=== PATIENT | female | born 1950 | race Caucasian/White ===

== ENCOUNTER 2019-05-28 13:12 | Emergency (ER) | payer MEDICARE, OTHER, SELFPAY ==
[2019-05-28 13:29] VITALS: BP 161/89; PULSE 96; RESP 20; TEMP 36; O2SAT 96
--- NOTE | 2019-05-28 13:37 | ED.GENADULT ---
HPI - General Adult General Chief complaint: Dental/Oral Stated complaint: left side tooth ache Time Seen by Provider: 05/28/19 13:37 Source: patient and RN notes reviewed History of Present Illness HPI narrative: Patient is a 68-year-old female that presents the urgent care with complaints of a left upper toothache. Patient states that she has had recent dental work done on the lower right but nothing on the left. Patient states that it started yesterday and now she is having increased swelling to the left face. Has been using Aleve, aspirin, Tylenol, Vicodin. No other acute complaints. Denies of fever, nausea, vomiting. No acute distress noted. Patient aware the plan of care. Related Data Home Medications Medication Instructions Recorded Confirmed fluoxetine mg 05/28/19 levothyroxine 05/28/19 nifedipine PO 05/28/19 Allergies Allergy/AdvReac Type Severity Reaction Status Date / Time No Known Allergies Allergy Unverified 05/28/19 13:27 Review of Systems Review of Systems: Narrative: CONSTITUTIONAL: Denies fever, chills, or sweats. EYES: Denies visual changes, redness, or discharge. ENT: Reports of upper left dental pain and facial swelling CARDIOVASCULAR: Denies chest pain, palpitations, or edema. RESPIRATORY: Denies cough or dyspnea. GASTROINTESTINAL: Denies abdominal pain, nausea, vomiting, or diarrhea. GENITOURINARY: Denies dysuria or hematuria. SKIN: Denies rash or itching. MUSCULOSKELETAL: Denies back pain, joint pain, or myalgia. NEUROLOGIC: Denies headache, numbness, or weakness. All other systems reviewed are negative, except as documented in HPI. PMFSH Comments At the time of my signature, I reviewed and agree with the nursing past medical, surgical, social, and family history. There is no relevant family history pertinent to the patient complaint. Exam Narrative: Exam Narrative: GENERAL: This is a well-nourished, well-developed patient, in no apparent distress. HEAD: normocephalic, atraumatic. EYES: PERRL. Sclera clear/white. Vision is grossly intact. EARS: External ears normal NOSE: External nose normal with no obvious nasal discharge, nares without redness, no rhinorrhea. THROAT: Mucous membranes moist, posterior pharynx clear. DENTAL: No obvious erythema or abscess noted to the upper left quadrant. Reports of pain to tooth numbers 15 and 16. Mild to moderate upper left facial swelling NECK: Neck supple, non-tender without lymphadenopathy, masses or thyromegaly. CARDIOVASCULAR: Regular rate and rhythm without murmurs, gallops, or rubs. RESPIRATORY: Clear to auscultation. Breath sounds equal bilaterally. No wheezes, rales, or rhonchi. SKIN: warm, intact with no suspicious lesions or rash, good texture and turgor. NEURO: awake, alert, and oriented to person, place and time. There were no obvious focal neurologic abnormalities. EXTREMITIES: No clubbing, cyanosis, or edema. Course Vital Signs Vital signs: Vital Signs Temperature 96.8 F L 05/28/19 13:29 Pulse Rate 96 05/28/19 13:29 Respiratory Rate 05/28/19 13:29 Blood Pressure 161/89 H 05/28/19 13:29 Pulse Oximetry 96 05/28/19 13:29 Temperature 96.8 F L 05/28/19 13:29 Pulse Rate 96 05/28/19 13:29 Respiratory Rate 05/28/19 13:29 Blood Pressure 161/89 H 05/28/19 13:29 Pulse Oximetry 96 05/28/19 13:29 Reviewed?patient is informed that they may have pre-hypertension or hypertension based on a blood pressure reading in the department. I recommend the patient call the primary care provider listed on their discharge instructions or a physician of their choice this week to arrange follow-up for further evaluation of possible pre-hypertension or hypertension. Medical Decision Making MDM Narrative Medical decision making narrative: Advised patient complete antibiotic regimen as prescribed. Make sure to eat and drink with medication. May use warm compress or ice to the face for comfort and swelling. Use Tylenol/ib
== END 2019-05-28 13:57 | disposition home or self-care (01) ==
PROVIDERS: Emergency Provider Nurse Practitioner Family; PCP Internal Medicine
DX: K08.89 Other specified disorders of teeth and supporting structures (principal); I10 Essential (primary) hypertension; E03.9 Hypothyroidism, unspecified
CPT/HCPCS: 99213; G0463

== ENCOUNTER 2020-11-15 09:45 | Emergency (ER) | payer OTHER, SELFPAY ==
--- NOTE | ~2020-11-15 | US_ITS ---
EXAMINATION:US venous doppler LE LT INDICATION:Leg swelling TECHNIQUE: Multiple grayscale, color flow and Doppler images of the left lower extremity deep venous systems were obtained and reviewed. COMPARISON:No prior studies for comparison. FINDINGS: The common femoral, superficial femoral and popliteal veins demonstrate normal respiratory variation, augmentation and compressibility. Color flow is also seen within the posterior tibial, pe roneal, greater saphenous and profunda veins. IMPRESSION: 1: No lower extremity deep venous thrombosis. Reviewed, dictated and finalized at location A.
--- NOTE | ~2020-11-15 | XR_ITS ---
EXAMINATION: XR knee LT 3V DATE: 11/15/2020 10:57 INDICATION: Left knee pain and swelling TECHNIQUE: Anteroposterior, oblique and crosstable lateral views of the left knee were obtained COMPARISON: None. FINDINGS: Cemented left total knee arthroplasty with patellar resurfacing which appears well seated in near isra tomic alignment. No periprosthetic lucency to suggest loosening or infection. Small left knee joint e ffusion. IMPRESSION: 1. Left total knee arthroplasty in near-anatomic alignment. No acute osseous abnormality. 2. Small left knee joint effusion. Reviewed, dictated and finalized at location A. IMPRESSION: 1. Left total knee arthroplasty in near-anatomic alignment. No acute osseous ab normality. 2. Small left knee joint effusion.
[2020-11-15 09:56] VITALS: BP 191/92; PULSE 90; RESP 18; TEMP 36.7; O2SAT 97
[2020-11-15 10:39] LABS: Basophils Absolute Auto 0.1 K/mm3 (0.0-0.1); Eosinophils Absolute Auto 0.2 K/mm3 (0-0.3); Eosinophils Percent Auto 2.5 % (0-4.4); Hematocrit 44.7 % (37.0-47.0); Hemoglobin 14.5 g/dL (12.0-15.0); Immature Granulocyte Absolute 0.03 K/mm3 (0.00-0.031); Immature Granulocyte Percent A 0.4 % (0-0.5); Lymphocytes Absolute Auto 3.25 K/mm3 (0.9-3.2); Lymphocytes Percent Auto 48.3 % (18.3-44.2); Mean Corpuscular HGB Conc 32.4 g/dl (32-36); Mean Corpuscular Hemoglobin 29.1 pg (26-34); Mean Corpuscular Volume 89.8 fl (80-100); Mean Platelet Volume 9.1 fl (7.4-10.4); Monocytes Absolute Auto 0.4 K/mm3 (0.1-0.6); Monocytes Percent Auto 6.2 % (2.6-8.5); Neutrophils Absolute Auto 2.8 K/mm3 (1.3-6.7); Neutrophils Percent Auto 41.6 % (45.5-73.1); Platelet Count Result 287 k/mm3 (150-375); Red Blood Count 4.98 M/mm3 (4.2-5.4); Red Cell Distribution Width 13.4 % (11.5-14.5); White Blood Count 6.7 K/mm3 (4.5-10.0)
[2020-11-15 10:45] LABS: Alanine Aminotransferase 21 U/L (4-35); Albumin Level 4.3 g/dL (3.5-5.1); Alkaline Phosphatase 97 U/L (38-126); Anion Gap 10 mmol/L (8-16); Aspartate Amino Transferase 27 U/L (14-36); Bilirubin,Total 0.5 mg/dL (0.2-1.3); Blood Urea Nitrogen 20 mg/dL (7-17); Calcium 9.4 mg/dL (8.4-10.2); Carbon Dioxide 24 mmol/L (22-30); Chloride 102 mmol/L (98-107); Estimated CRCL calculation 72 ml/min; Estimated Glomerular Filt Rate > 60; Glucose 108 mg/dL (65-110); INR 0.9; Partial Thromboplastin Time 26.5 SECONDS (22.3-36.8); Potassium 4.1 mmol/L (3.4-5.0); Prothrombin Time 12.5 Seconds (11.1-14.7); Sodium 136 mmol/L (137-145)
--- NOTE | 2020-11-15 11:46 | ED.GENADULT ---
HPI - General Adult General Chief complaint: Extremity Injury, Lower <Mannie Farr PA-C - Last Filed: 11/15/20 11:52> Stated complaint: swelling in left leg for 1 week <Mannie Farr PA-C - Last Filed: 11/15/20 11:52> Time Seen by Provider: 11/15/20 10:07 <Mannie Farr PA-C - Last Filed: 11/15/20 11:52> Source: patient and RN notes reviewed <Mannie Farr PA-C - Last Filed: 11/15/20 11:52> Mode of arrival: ambulatory <Mannie Farr PA-C - Last Filed: 11/15/20 11:52> Limitations: no limitations <Mannie Farr PA-C - Last Filed: 11/15/20 11:52> History of Present Illness HPI narrative: Patient is a 70-year-old female who presents with 1 week duration of atraumatic left leg pain noting pain behind the left knee radiating to the thigh notes swelling about the knee denies injury or trauma does have history of bilateral knee surgery followed by orthopedic surgery in [place] patient denies other complaints or injuries has not taken anything for symptoms presents in no distress <Mannie Farr PA-C - Last Filed: 11/15/20 11:52> Related Data Home medications: Home Medications Medication Instructions Recorded Confirmed fluoxetine mg 05/28/19 levothyroxine 05/28/19 nifedipine PO 05/28/19 <Mannie Farr PA-C - Last Filed: 11/15/20 11:52> Allergies/adverse reactions: Allergies Allergy/AdvReac Type Severity Reaction Status Date / Time No Known Allergies Allergy Verified 11/15/20 10:01 <Mannie Farr PA-C - Last Filed: 11/15/20 11:52> Review of Systems Review of Systems: All systems reviewed & are unremarkable except as noted in HPI and below <Mannie Farr PA-C - Last Filed: 11/15/20 11:52> [facility] Past Medical History Medical History: Medical History (Updated 11/15/20 @ 11:52 by Mannie Farr PA-C) Hypothyroidism <Mannie Farr PA-C - Last Filed: 11/15/20 11:52> Social History Social History: Social History (Updated 11/15/20 @ 11:48 by Mannie Farr PA-C) Smoking status: Never smoker Gender identity (if verbalized by the patient): Female <Mannie Farr PA-C - Last Filed: 11/15/20 11:52> Exam Narrative: GENERAL: Well-appearing, well-nourished, and in no acute distress. HEAD: Normocephalic, atraumatic. EYES: PERRLA and EOMI. ENT: Nares clear, no rhinorrhea or epistaxis. Mucous membranes moist. CHEST: Clear to auscultation. No respiratory distress. No wheezes rales or rhonchi HEART: Regular rate and rhythm. No murmur heard. Normal peripheral pulses. EXTREMITIES: Patient with swelling and tenderness of the posterior left knee no erythema no warmth remainder of extremity nontender no deformity SKIN: Warm, dry, no rash. NEURO: No focal deficits. Alert and oriented x3. Neurovascularly intact. Capillary refill less than 2 seconds PSYCH: Normal mood and affect. <Mannie Farr PA-C - Last Filed: 11/15/20 11:52> Course Course Emergency Course: Patient evaluated for pain of the left lower extremity small effusion of the knee likely suggesting that the knee could be the possible etiology patient will be referred back to her orthopedist provided with reasons to return ABCs and vital signs intact and stable. <Mannie Farr PA-C - Last Filed: 11/15/20 11:52> Vital Signs Vital signs: Vital Signs Temperature 98.1 F 11/15/20 09:56 Pulse Rate 90 11/15/20 09:56 Respiratory Rate 18 11/15/20 09:56 Blood Pressure 191/92 H 11/15/20 09:56 Pulse Oximetry 97 11/15/20 09:56 Temperature 98.1 F 11/15/20 09:56 Pulse Rate 73 11/15/20 11:48 Respiratory Rate 18 11/15/20 11:48 Blood Pressure 171/79 H 11/15/20 11:48 Pulse Oximetry 97 11/15/20 11:48 <Mannie Farr PA-C - Last Filed: 11/15/20 11:52> Vital Signs Temperature 98.1 F 11/15/20 09:56 Pulse Rate 90 11/15/20 09:56 Respiratory Rate 18 11/15/20 09:56 Blood Pressure
[2020-11-15 11:48] VITALS: BP 171/79; PULSE 73; RESP 18; O2SAT 97
== END 2020-11-15 12:16 | disposition home or self-care (01) ==
PROVIDERS: Emergency Medicine Emergency Medical Services; Emergency Provider General Practice
DX: M79.605 Pain in left leg (principal); E03.9 Hypothyroidism, unspecified; Z96.652 Presence of left artificial knee joint
CPT/HCPCS: 36415; 73562; 80053; 85025; 85610; 85730; 93971; 99284

== ENCOUNTER 2022-04-27 17:49 | Emergency (ER) | payer OTHER, SELFPAY ==
[2022-04-27 17:59] VITALS: BP 189/91; PULSE 87; RESP 16; TEMP 36.4; O2SAT 94
--- NOTE | 2022-04-27 19:15 | ED.RECABL ---
HPI - Recheck/Abnormal Lab/Rx General Chief Complaint: Recheck/Abnormal Lab/Rx Stated Complaint: high blood pressure Time Seen by Provider: 04/27/22 19:06 History of Present Illness HPI narrative: This is a 71-year-old female past medical history of hypertension, recently taken off of her Procardia and started on losartan, presenting the emergency department complaining of elevated blood pressure. The patient states she was having muscle cramps related to Procardia and was switched as above. Today she noted her blood pressure was elevated she contacted her primary care doctor's office and was recommended to come to the emergency department. She voices some anxiety related to her visit today. She has no other complaints. Related Data Home Medications Medication Instructions Recorded Confirmed fluoxetine 20 mg capsule mg 05/28/19 levothyroxine 137 mcg tablet 05/28/19 nifedipine 90 mg tablet,extended PO 05/28/19 release Allergies Allergy/AdvReac Type Severity Reaction Status Date / Time No Known Allergies Allergy Verified 11/15/20 10:01 Review of Systems Review of Systems: CONSTITUTIONAL: Denies fever, chills, or sweats. EYES: Denies visual changes, redness, or discharge. CARDIOVASCULAR: Denies chest pain, palpitations, or edema. RESPIRATORY: Denies cough or dyspnea. GASTROINTESTINAL: Denies abdominal pain, nausea, vomiting, or diarrhea. GENITOURINARY: Denies dysuria or hematuria. SKIN: Denies rash or itching. MUSCULOSKELETAL: Denies back pain, joint pain, or myalgia. NEUROLOGIC: Denies headache, numbness, dizziness, or weakness. PSYCHIATRIC: Denies anxiety or depression. PMFSH Past Medical History Medical History Hypertension Hypothyroidism Surgical History Surgical History H/O wrist surgery Social History Social History (Updated 04/27/22 @ 19:17 by Robi Goodman MD) Smoking status: Never smoker Alcohol intake: current Drinks per week: 2 Substance use: never Gender identity (if verbalized by the patient): Female Exam Narrative: GENERAL: Well-appearing, well-nourished, and in no acute distress. HEAD: Normocephalic, atraumatic. EYES: PERRLA and EOMI. CHEST: Clear to auscultation. No respiratory distress. No wheezes rales or rhonchi HEART: Regular rate and rhythm. No murmur heard. Normal peripheral pulses. ABDOMEN: Soft, nontender, nondistended, normal active bowel sounds. EXTREMITIES: Normal range of motion. No edema. SKIN: Warm, dry, no rash. NEURO: No focal deficits. Cranial nerves II through XII intact, sensation intact bilaterally, strength 5/5 in all extremities. Alert and oriented x3. PSYCH: Normal mood and affect. Course Course Emergency Course: 21:00 - The patient was given an oral dose of hydralazine with appropriate decrease from the 210s to the 180s. She denies symptoms concerning for hypertensive emergency. Will discharge. Discussed return emergent precautions including signs/symptoms of focal neural deficit. The patient voiced understanding and is comfortable with the plan. All questions answered to her satisfaction. Vital Signs Vital signs: Vital Signs Temperature 97.6 F 04/27/22 17:59 Pulse Rate 87 04/27/22 17:59 Respiratory Rate 16 04/27/22 17:59 Blood Pressure 189/91 H 04/27/22 17:59 Pulse Oximetry 94 04/27/22 17:59 Oxygen Delivery Room Air 04/27/22 17:59 Temperature 97.6 F 04/27/22 17:59 Pulse Rate 92 04/27/22 20:22 Respiratory Rate 20 04/27/22 20:22 Blood Pressure 180/84 H 04/27/22 21:17 Pulse Oximetry 99 04/27/22 20:22 Oxygen Delivery Room Air 04/27/22 17:59 MDM - Recheck/Abnormal Lab/Rx MDM Narrative Medical decision making narrative: Plan: Observation, reassess Differential Diagnosis Differential diagnosis: Likely other (Hypertension, medication side effect, anxiety, other) Disc
--- NOTE | 2022-04-27 19:17 | PC.NURSE ---
Pt reports elevated blood pressure after her PCP adjusted her blood pressure medications. She denies any symptoms of high blood pressure. Speech is clear, moves all extremities equally. Denies any complaints at this time.
[2022-04-27 19:40] VITALS: BP 212/87; PULSE 78; RESP 15; O2SAT 99
[2022-04-27 19:47] VITALS: BP 199/78; PULSE 86; RESP 20; O2SAT 100
[2022-04-27] MEDS: hydrALAZINE HCL 50 MG TABLET PO (20:02)
[2022-04-27 20:22] VITALS: BP 189/79; PULSE 92; RESP 20; O2SAT 99
[2022-04-27 21:17] VITALS: BP 180/84
== END 2022-04-27 21:18 | disposition home or self-care (01) ==
PROVIDERS: Emergency Provider Preventive Medicine Aerospace Medicine
DX: I10 Essential (primary) hypertension (principal); E03.9 Hypothyroidism, unspecified
CPT/HCPCS: 99283; A9270

== ENCOUNTER 2022-06-30 01:24 | Day surgery (SDC) | payer OTHER, SELFPAY ==
[2022-06-19 12:01] VITALS: BMI 40.4
[2022-06-30 07:18] VITALS: BP 131/75; PULSE 72; RESP 18; TEMP 36.2; O2SAT 97
[2022-06-30] MEDS: LACTATED RINGERS 1,000 ML 150 ML IV CONT (07:26)
--- NOTE | 2022-06-30 07:59 | PM.HPGS ---
History of Present Illness History of Present Illness Consent: Risks, benefits, and alternatives have been discussed and questions answered. Patient agrees to proceed with procedure. Chief complaint: neoplasm screening Narrative: [place] Alfred is a 71 year old female Presents for screening colonoscopy. Patient reports prior history of colon polyps at [facility] sometime prior to 2016. Family history is significant that her mother with colon cancer. Patient reports her current weight appetite and bowel movements are normal. Family history as stated. Physical exam reveals patient to be alert. Vital signs stable. HEENT exam is unremarkable. Patient is anicteric. Lungs are clear to auscultation and percussion. Heart is without murmur or extra sounds. Abdomen bowel sounds are present soft nontender with no organomegaly. Digital external rectal exam is normal. Review of Systems Review of Systems: Review of systems noncontributory. [facility] Past Medical History Medical History Hypertension Hypothyroidism Surgical History Surgical History H/O wrist surgery Social History Social History (Updated 04/27/22 @ 19:17 by Robi Goodman MD) Smoking status: Never smoker Alcohol intake: current Drinks per week: 2 Substance use: never Substance use type: does not use Living arrangements: alone Gender identity (if verbalized by the patient): Female Spiritual care concerns: No Meds Home Medications and Allergies Home Medications Medication Instructions Recorded Confirmed Type levothyroxine 137 mcg tablet 137 mcg PO DAILY 05/28/19 06/30/22 History nifedipine 60 mg tablet,extended 60 mg PO DAILY 06/19/22 06/30/22 History release Allergies Allergy/AdvReac Type Severity Reaction Status Date / Time No Known Allergies Allergy Verified 06/30/22 07:16 Vital Signs Vital Signs - 24 hr 06/30/22 07:18 Temperature 97.1 F L Pulse Rate 72 Respiratory Rate 18 Blood Pressure 131/75 Pulse Oximetry 97 Oxygen Delivery Room Air Exam Narrative: Physical exam reveals patient to be alert. Vital signs stable. HEENT exam is unremarkable. Patient is anicteric. Lungs are clear to auscultation and percussion. Heart is without murmur or extra sounds. Abdomen bowel sounds are present soft nontender with no organomegaly. Digital external rectal exam is normal. Assessment and Plan Assessment and plan (1) Family history of colon cancer in mother: Code(s): Z80.0 - Family history of malignant neoplasm of digestive organs Status: Acute Assessment and Plan: Screening colonoscopy advised because of family history of colon cancer mother as well as her own personal history of colon polyps. Colonoscopy suggest now on at least every 5 years in the future. (2) History of colon polyps: Code(s): Z86.010 - Personal history of colonic polyps Status: Acute
--- NOTE | 2022-06-30 08:20 | P.PNAN_ITS ---
Anes - Initial Pre Proc Eval Procedure: Operation Date: 06/30/22 08:30 Proposed Procedures p Screening Colonoscopy - Shmuel Mccracken MD Date/Time: 06/30/22 08:20 Surgeon: Shmuel Mccracken MD Pre Op Diagnosis: neoplasm screening Patient Data Age: 71 Gender: F Height: 1.68 m Weight: 108.6 kg Last Vital Signs Temp 97.1 F L 06/30/22 07:18 Pulse 72 06/30/22 07:18 Resp 18 06/30/22 07:18 BP 131/75 06/30/22 07:18 Pulse Ox 97 06/30/22 07:18 O2 Del Method Room Air 06/30/22 07:18 Allergies Allergy/AdvReac Type Severity Reaction Status Date / Time No Known Allergies Allergy Verified 06/30/22 07:16 Home Medications Medication Instructions Recorded Confirmed Type levothyroxine 137 mcg tablet 137 mcg PO DAILY 05/28/19 06/30/22 History nifedipine 60 mg tablet,extended 60 mg PO DAILY 06/19/22 06/30/22 History release Patient hx anesthesia problems: none Family hx anesthesia problems: none Results Review: All pre-operative results and documents have been reviewed as part of the pre- operative evaluation. PMFSH Past Medical History Medical History Hypertension Hypothyroidism Surgical History Surgical History H/O wrist surgery Social History Social History (Updated 04/27/22 @ 19:17 by Robi Goodman MD) Smoking status: Never smoker Alcohol intake: current Drinks per week: 2 Substance use: never Substance use type: does not use Living arrangements: alone Gender identity (if verbalized by the patient): Female Spiritual care concerns: No Anes - Eval Final PreProcedure Day of Procedure 06/30/22 08:20 Patient weight: obese Heart: regular rate and rhythm Lungs: clear to auscultation Airway: Mallampati scale class II Neurological: alert and oriented Last oral intake: >/= 8 hours ASA classification: III Emergent: no Anesthetic plan: proceed Anesthesia type and monitoring: general GIVS and standard monitoring Results Review: All pre-operative results and documents have been reviewed as part of the pre-operative evaluation. Informed Consent: The patient's anesthetic plan and its attendant risks and benefits were discussed with the patient/family/POA. Questions were solicited and answers provided to the satisfaction of the patient/family/POA.
[2022-06-30 08:59] VITALS: BP 123/68; PULSE 70; RESP 24; O2SAT 96
[2022-06-30 09:09] VITALS: BP 135/76; PULSE 72; RESP 22; O2SAT 98
[2022-06-30 09:19] VITALS: BP 142/79; PULSE 70; RESP 22; O2SAT 100
== END 2022-06-30 09:28 | disposition home or self-care (01) ==
PROVIDERS: Visit Provider Internal Medicine Gastroenterology
PROC: 0DJD8ZZ Inspection of Lower Intestinal Tract, Via Natural or Artificial Opening Endoscopic (ICD-10-PCS; CPT 45378; principal; 2022-06-30 08:30)
DX: Z12.11 Encounter for screening for malignant neoplasm of colon (principal); D12.4 Benign neoplasm of descending colon; K64.8 Other hemorrhoids; K57.30 Diverticulosis of large intestine without perforation or abscess without bleeding; I10 Essential (primary) hypertension; E03.9 Hypothyroidism, unspecified; F10.90 Alcohol use, unspecified, uncomplicated; E66.9 Obesity, unspecified; Z68.38 Body mass index [BMI] 38.0-38.9, adult; Z86.010 Personal history of colon polyps; Z80.0 Family history of malignant neoplasm of digestive organs
CPT/HCPCS: G0105; 88305; J2704; J7120

== ENCOUNTER 2024-06-14 08:33 | Outpatient (CLI) | payer MEDICARE, SELFPAY ==
--- NOTE | ~2024-06-14 | US_ITS ---
EXAMINATION: US soft tissue head and neck DATE: 06/14/2024 08:45 INDICATION: Cervical lymphadenopathy TECHNIQUE: Multiple ultrasound grayscale images of the region of the palpable abnormality posterior r ight neck were obtained. COMPARISON: None. FINDINGS: There is a 4.1 x 2.7 x 1.6 cm hypoechoic enlarged lymph node which located inferior to the parotid gl and between the sternocleidomastoid muscle and the internal jugular vein. There is asymmetric cortica l thickening the lymph node with eccentric positioning and thinning of the echogenic hilum. There is a more caudal normals sized and appearing lymph node measuring 1.4 x 1.2 x 0.9 cm with central echoge carmen fatty hilum. IMPRESSION: 1. Enlarged 4.1 x 2.7 x 1.6 cm right jugular chain lymph node which could be reactive, metastatic or due to lymphoma. Would recommend ultrasound-guided core needle biopsy. Reviewed, dictated and finalized at location B. [employer] IMPRESSION: 1. Enlarged 4.1 x 2.7 x 1.6 cm right jugular chain lymph node which could be r eactive, metastatic or due to lymphoma. Would recommend ultrasound-guided core needle biopsy.
--- NOTE | ~2024-06-14 | XR_ITS ---
EXAMINATION: XR knee RT 3V DATE: 06/14/2024 08:52 INDICATION: Acute onset lateral right knee pain post fall one month prior TECHNIQUE: Weight bearing anteroposterior, sunrise, and flexed lateral views of the right knee were o btained COMPARISON: None. FINDINGS: Right total knee arthroplasty which appears well seated in near-anatomic alignment. No fracture. No p eriprosthetic lucency to suggest loosening or infection. Small left knee joint effusion. Soft tissues are otherwise unremarkable. IMPRESSION: 1. Expected appearance of a right total knee arthroplasty with no acute osseous abnormality. 2. Small right knee joint effusion. Reviewed, dictated and finalized at location B. 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
== END 2024-06-14 08:34 | disposition home or self-care (01) ==
LOC: GOSHIMG 08:34
PROVIDERS: PCP Family Medicine; Visit Provider Family Medicine
DX: R59.0 Localized enlarged lymph nodes (principal); M25.461 Effusion, right knee; Z96.651 Presence of right artificial knee joint
CPT/HCPCS: 73562; 76536

== ENCOUNTER 2024-06-20 08:58 | Outpatient (CLI) | payer MEDICARE, SELFPAY | END 2024-06-20 08:59 | disposition home or self-care (01) | PROVIDERS: PCP Family Medicine; Visit Provider Family Medicine | DX: R59.0 Localized enlarged lymph nodes (principal) | CPT/HCPCS: 38505; 76942; 88184; 88305; 88342 ==

== ENCOUNTER 2024-08-24 06:24 | Emergency (ER) | payer MEDICARE, OTHER, SELFPAY ==
[2024-08-24 06:19] VITALS: BP 164/88; PULSE 98; RESP 23; TEMP 36.2; O2SAT 93
--- NOTE | 2024-08-24 06:30 | ED.GENADULT ---
HPI - General Adult General Chief complaint: GI Bleed Stated complaint: hemoptysis Time Seen by Provider: 08/24/24 06:30 History of Present Illness HPI narrative: Patient 73-year-old female presents emergency department with chief complaint of hemoptysis. Patient reports she had a tonsillectomy about a week ago at [place] patient states that this morning she started having bright red blood that she was spitting up. Patient states she has had several bouts of a large amount of blood patient denies chest pain denies shortness of breath. Related Data Home Medications ?Medication ?Instructions ?Recorded ?Confirmed ?Last Taken ?Type levothyroxine 137 mcg tablet 137 mcg PO DAILY 05/28/19 06/30/22 06/29/22 History nifedipine 60 mg tablet,extended 60 mg PO DAILY 06/19/22 06/30/22 06/29/22 History release Allergies Allergy/AdvReac Type Severity Reaction Status Date / Time No Known Allergies Allergy Verified 06/30/22 07:16 Review of Systems Review of Systems: A 10 system review of systems was completed on the patient and is negative except for what is stated in the HPI. Nursing and ancillary documentation was reviewed. [facility] Past Medical History Medical History Hypertension Hypothyroidism Surgical History Surgical History H/O wrist surgery Social History Social History Smoking status: Never smoker Alcohol intake: current Drinks per week: 2 Substance use: never Substance use type: does not use Living arrangements: alone Gender identity (if verbalized by the patient): Female Spiritual care concerns: No Exam Narrative: GENERAL: Well-appearing, well-nourished, and in no acute distress. HEAD: Normocephalic, atraumatic. EYES: PERRLA and EOMI. ENT: Nares clear, no rhinorrhea or epistaxis. Mucous membranes moist. Bright red blood in the oropharynx clot present on the tonsillar bed NECK: Supple. CHEST: Clear to auscultation. No respiratory distress. HEART: Regular rate and rhythm. No murmur heard. Normal peripheral pulses. ABDOMEN: Soft, nontender, nondistended, normal active bowel sounds. EXTREMITIES: Normal range of motion. No edema. SKIN: Warm, dry, no rash. NEURO: No focal deficits. Alert and oriented x3. PSYCH: Normal mood and affect. Course Vital Signs Vital signs: Vital Signs Temperature 36.2 C L 08/24/24 06:19 Pulse Rate 98 08/24/24 06:19 Respiratory Rate 23 H 08/24/24 06:19 Blood Pressure 164/88 H 08/24/24 06:19 Pulse Oximetry 93 08/24/24 06:19 Oxygen Delivery Room Air 08/24/24 06:19 Temperature 36.2 C L 08/24/24 06:19 Pulse Rate 98 08/24/24 06:19 Respiratory Rate 23 H 08/24/24 06:19 Blood Pressure 164/88 H 08/24/24 06:19 Pulse Oximetry 93 08/24/24 06:19 Oxygen Delivery Room Air 08/24/24 06:19 Medical Decision Making Vital Signs Vital Signs: Vital Signs Temperature 36.2 C L 08/24/24 06:19 Pulse Rate 98 08/24/24 06:19 Respiratory Rate 23 H 08/24/24 06:19 Blood Pressure 164/88 H 08/24/24 06:19 Pulse Oximetry 93 08/24/24 06:19 Oxygen Delivery Room Air 08/24/24 06:19 Temperature 36.2 C L 08/24/24 06:19 Pulse Rate 98 08/24/24 06:19 Respiratory Rate 23 H 08/24/24 06:19 Blood Pressure 164/88 H 08/24/24 06:19 Pulse Oximetry 93 08/24/24 06:19 Oxygen Delivery Room Air 08/24/24 06:19 Critical Care Time Critical Care Time Critical Care Time: Yes Total Critical Care Time: 35 Discharge Plan Discharge Clinical Impression: Post-tonsillectomy hemorrhage Patient Disposition: Acute Care Hospital Condition: Stable Patient Language: Kazakh Prescriptions: No Action levothyroxine 137 mcg tablet 137 mcg PO DAILY nifedipine 60 mg tablet extended release 60 mg PO DAILY Follow-up/Referrals: Alexis,MD Juhi [Primary Care Provider] -
--- NOTE | 2024-08-24 06:32 | PC.NURSE ---
blood clots noted on bottom left, pt denies pain at this time.
[2024-08-24] MEDS: TRANEXAMIC ACID 1,000 MG/10 ML AMPUL 1000 MG TOPICAL (06:38)
[2024-08-24] MEDS: SODIUM CHLORIDE 0.9% IV 1,000 ML 999 ML IV CONT (06:47)
[2024-08-24] MEDS: TRANEXAMIC ACID 1,000 MG/10 ML AMPUL 1000 MG IV PUSH (06:49)
[2024-08-24] MEDS: ONDANSETRON INJ 4 MG/2 ML VIAL IV PUSH (07:03)
--- OUTSIDE RECORDS SUMMARY | 2024-08-24 07:04 | XMS_ITS | Clinical Summary ---
Author Organization [facility] Address [address] [place] [id number] Phone Care Team Providers Care Graphic Coordinator Name Role Phone Juhi Espinoza MD Primary Care Provider [phone] Shmuel Mccracken MD Unavailable [phone] OppeltMagdiel MD Unavailable Hilary Rousseau RN Unavailable UnavailJacqui PrakashW Unavailable Unavaila Elier Ferrari MD Unavailable [phone] Damien Valles MD Unavailable Shahram Rosas MD Unavailable Allergies No known active allergies Medications NIFEdipine (NIFEdipine CC) 60 mg 24 hr tabletIndicat ions:Hyperten ruth, essential Take 1 tablet (60 mg total) by mouth daily 90 tablet 3 024 Active Additional Information Patient taking differently:60 mg oralNightly, Indications: HTN, Informant: Self, Reported on 08/17/2024 acyclovir (ZOVIRAX) 5 % ointmentIndic ations:Herpes gladiatorum APPLY TOPICALLY 5 (FIVE) TIMES A DAY FOR 4 DAYS SPACE APPLICATIONS EVERY 3 HOURS. 15 g 11 024 Active Additional Information Patient taking differently: 1 ApplicationtopicalDaily PRN, skin, For 4 days Space applications every 3 hours.,Indications: skin, Informant: Self, Reported on 08/17/2024 levothyroxine (SYNTHROID) 150 mcg tabletIndicat ions:hypothyr oidism TAKE 1 TABLET (150 MCG TOTAL) BY MOUTH 6 TIMES A WEEK AND 1/2 TABLET (75 MCG TOTAL) ONE DAY A WEEK 90 tablet 2 025 Active Additional Information Patient taking differently: 150 mcg oral Nightly, TAKE 1 TABLET (150 MCG TOTAL) BY MOUTH 6 TIMES A WEEK AND 1/2 TABLET (75 MCG TOTAL) ONE DAY A WEEK (Sundays), Indications: hypothyroidism, Informant: Self, Reported on 08/17/2024 docusate sodium (COLACE) 100 mg capsuleIndica tions:constip ation Take 1 capsule (100 mg total) by mouth nightly as needed for constipation 025 Active FOLIC ACID ORALIndicatio ns:Supplement Take 1 tablet by mouth every evening Active acetaminophen (TYLENOL) 500 mg tabletIndicat ions:Pain Take 2 tablets (1,000 mg total) by mouth every 6 (six) hours as needed for pain Active diphenhydrAMI NE 25 mg capsuleIndica tions:congest ion Take 1 tablet/capsule (25 mg total) by mouth every 6 (six) hours as needed for allergies Active dextromethorp hn/acetaminop h/cp (CORICIDIN HBP FLU ORAL)Indicati ons:cough, congestion Take 1 tablet by mouth 2 (two) times a day as needed (cough congestion) Active oxyCODONE (ROXICODONE) 5 mg immediate release tabletIndicat ions:Pain Take 1 tablet (5 mg total) by mouth every 4 (four) hours as needed for pain 40 tablet 025 Active levoFLOXacin (LEVAQUIN) 750 mg tabletIndicat ions:Pneumoni a, Community Acquired Take 1 tablet (750 mg total) by mouth daily for 5 days 5 tablet 025 2024 Additional Information Patient taking differently:750 mg oralDaily after lunch, Indications: Pneumonia, Community Acquired, Informant: Self, Reported on 08/09/2024 Active Problems Problem Noted Date Diagnosed Date 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 Atherosclerotic changes in the aorta & coronary arteries w/ calcification. DDD thruout the thoracic spine 08/08/2024 - CXR - Heart size & vascularity normal. Aortic arch well-defined on the left. Perihilar interstitial densities w/ a confluence appearance in the right infrahilar regions suggesting peribronchial inflammatory changes w/ developing atelectasis and/or infiltrative new from prior exam. No effusion or pneumothorax. Bony degenerative changes at shoulders & thoracic spine obscures the apices. Covid-19 positive today Influenza A and influenza B negative Has been on Paxlovid in the past. Did not like taking it. Symptoms for > 5 days anyway (started 7-10 days ago). Outside of antiviral window. Does not appear systemically ill. afebrile Poor pulmonary exam - focal crackles/rales right lower lung field. Concern for CAP. Rx Levaquin 750 mg daily x 5 days. Rest. Call office if symptoms worsen or do not improve. Wear mask when in public until resolution. 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 Asymmetric cortical thickening of the lymph node w/ eccentric positioning & thinning of the echogenic hilum. More caudal normal sized & appearing lymph node measuring 1.4 x 1.2 x 0.9 cm w/ central echogenic fatty hilum. IMPRESSION - Enlarged 4.1 x 2.7 x 1.6 cm right jugular chain lymph node which could be reactive, metastatic, or due to lymphoma. Recommend ultrasound-guided core needle biopsy 06/14/2024 - x-ray right knee - right total knee arthroplasty which appears well seated in near-anatomic alignment. No fracture. No periprosthetic lucency to suggest loosening or infection. Small left knee joint effusion. Soft tissues otherwise unremarkable. IMPRESSION - Expected appearance of right total knee arthroplasty w/ no acute osseous abnl. Small right knee joint effusion 06/20/2024 - lymph node biopsy - right cervical lymph node - metastatic poorly differentiated carcinoma w/ squamous features of unknown primary site CK7 positive CK20 negative TFF-1 negative GATA3 positive CK5 positive CD117 negative P63 positive P16 positive; HPV positive Possible primary - endo squamous carcinoma of lung, metaplastic carcinoma of the breast, squamous cell carcinoma of the lung, mucoid epidermoid carcinoma of the salivary gland, and NUT midline carcinoma. 07/06/2024 - PET-CT - Markedly FDG avid cervical lymphadenopathy consistent w/ biopsy proven carcinoma. Add'l moderately FDG avid bilateral hilar, mediastinal, & internal mammary lymphadenopathy, which may be nonspecific. No PET evidence of primary tumor. Mildly FDG avid ground glass in the left & right lower lobes indeterminate but likely infectious or inflammatory in nature. Recommend follow up on CT chest in 3 months. 07/26/2024 - Chest CT - One or two 3 to 4 mm size nodules in each posterior lung base along w/ a small amt of linear scarring. Atherosclerotic changes in the aorta & coronary arteries w/ calcification. DDD thruout the thoracic spine 07/27/2023 - CT neck soft tissue - Enlarged enhancing right level 2 & 1B nodes consistent w/ metastatic disease. LLL 4 mm pulmonary nodule. Query metastatic Established care with Oncology - Dr. Campbell - 07/13/2024 Established care with Rad-Onc - Dr. Damien Valles - 07/24/2024 Established care with ENT - Dr. Shahram Rosas - 07/25/2024 Specialists feel that primary most likely oropharyngeal. P 16 testing pending. Recommend right-sided tonsillectomy and lingual tonsillectomy and neck dissection followed by adjuvant radiation therapy. ENT Dr. Quintero has the surgery scheduled 08/11/2024 Advance directive discussed with patient 025 Assessment & Plan (05/15/2024 11:44 AM ABSTRACT MAKER): Handout given Cervical lymphadenopathy 05/15/2024 Assessment & Plan (05/15/2024 4:45 PM ABSTRACT MAKER): 2 x 2 cm soft, non-tender, mobile lymph node right superior cervical area No assoc pain in right ear, sore throat, dental pain, scalp lesion, etc. First noticed it 2 weeks ago. Discussed further evaluation with US now, or watchful waiting. She will monitor for 4-6 weeks. If not resolved, she will contact office for US. Check CBC with diff today. Likely reactive lymph node, but it is quite large. Elevated hematocrit 05/15/2024 Assessment & Plan (08/08/2024 12:55 PM CDT): 01/2023 - H/H 15.6/50.6 (H) 05/15/2024 - H/H 15.1/47.6 (elevated hematocrit) Platelet 418 (H) WBC and differential normal Mildly elevated. Former smoker, quit in distant past. Possibly assoc with undiagnosed RISSA. Recheck today Assessment & Plan (05/15/2024 4:44 PM ABSTRACT MAKER): 01/2023 - H/H 15.6/50.6 (H) Mildly elevated. Former smoker, quit in distant past. Possibly assoc with undiagnosed RISSA. Recheck today Immunization due 04/21/2022 Assessment & Plan (05/15/2024 4:42 PM ABSTRACT MAKER): Shingrix #2 Discussed Shingrix avail at local pharmacy Assessment & Plan (04/21/2023 8:42 PM ABSTRACT MAKER): Influenza, Covid-19, Shingrix #2 Discussed Covid-19 and Shingrix avail at local pharmacy Could wait until 3 month following Covid-19 diagnosis for Covid-19 vaccine Assessment & Plan (04/21/2022 10:56 AM ABSTRACT MAKER): Influenza, Covid-19 booster, Shingrix Discussed Covid-19 and Shingrix avail at local pharmacy Hearing loss 04/21/2022 Assessment & Plan (05/15/2024 11:39 AM ABSTRACT MAKER): Hearing aids expensive and were never comfortable for her. Assessment & Plan (04/21/2023 8:41 PM ABSTRACT MAKER): Hearing aids expensive and not very useful to patient. Assessment & Plan (04/21/2022 4:39 PM ABSTRACT MAKER): Hearing aids expensive and not very useful to patient. Prediabetes 04/21/2022 Assessment & Plan (08/08/2024 12:54 PM CDT): 04/2022 - HgbA1c 6.0 01/2023 - HgbA1c 5.7 04/2024 - HgbA1c 5.7 Diet control Assessment & Plan (05/14/2024 8:02 PM ABSTRACT MAKER): 04/2022 - HgbA1c 6.0 01/2023 - HgbA1c 5.7 Diet control Assessment & Plan (04/21/2023 8:44 PM ABSTRACT MAKER): 04/2022 - HgbA1c 6.0 01/2023 - HgbA1c 5.7 Diet control Assessment & Plan (05/05/2022 3:16 PM ABSTRACT MAKER): 04/21/2022 - HgbA1c 6.0 Annual physical exam 04/15/2021 Assessment & Plan (05/15/2024 4:41 PM ABSTRACT MAKER): 01/2023 - Cr 0.90, eGFR 68 Total 268; Trig 247; HDL 70; LDL 149 HgbA1c 5.7 TSH 0.78 25(OH) Vit D 32 H/H 15.6/50.6 Urine microalb negative Assessment & Plan (04/21/2023 8:44 PM ABSTRACT MAKER): 01/2023 - Cr 0.90, eGFR 68 Total 268; Trig 247; HDL 70; LDL 149 HgbA1c 5.7 TSH 0.78 25(OH) Vit D 32 H/H 15.6/50.6 Urine microalb negative Assessment & Plan (04/21/2022 6:14 AM ABSTRACT MAKER): 03/2020 - 25(OH) Vit D 42 03/2021 - H/H 15.9/50.7 Glucose 120 Assessment & Plan (04/15/2021 11:36 AM ABSTRACT MAKER): 03/2020 - Total 216; Trig 41; HDL 109; HDL 99 Has donated blood within the last 3 years, so would have been screened for Hepatitis C 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 Screening for condition 04/15/2021 Assessment & Plan (05/15/2024 4:41 PM ABSTRACT MAKER): Patient screened for future fall risk; documentation of no falls in the past year or only 1 fall without injury in the past year Assessment & Plan (04/22/2023 9:06 AM ABSTRACT MAKER): Patient screened for future fall risk; documentation of no falls in the past year or only 1 fall without injury in the past year Assessment & Plan (04/21/2022 11:11 AM ABSTRACT MAKER): Patient screened for future fall risk; documentation of no falls in the past year or only 1 fall without injury in the past year Assessment & Plan (04/15/2021 12:36 PM ABSTRACT MAKER): Patient screened for future fall risk; documentation of no falls in the past year or only 1 fall without injury in the past year Trochanteric bursitis of left hip 05/09/2020 Assessment & Plan (05/09/2020 4:32 PM ABSTRACT MAKER): Recommend ice OR heat to affected area. 20 minutes at a time, 2-3 times a day. Home exercises [email or web address] Refill muscle relaxer as this has helped. Refer to PT Recommend to work on back pain as well because the two are likely assoc with one another History of colon polyps 04/02/2020 Assessment & Plan (08/08/2024 12:55 PM CDT): 11/2014 - c-scope - One 4 mm polyp in the cecum; One 3 mm polyp transverse colon; Internal hemorrhoids. Pathology - tubular adenoma; focal hyperplastic change, benign lymphoid aggregate 06/2022 - colonoscopy - single small sessile polyp descending colon. Multiple medium-sized non-bleeding internal hemorrhoids. Multiple medium diverticula sigmoid colon Dr. Shmuel Mccracken Assessment & Plan (06/23/2024 3:03 PM ABSTRACT MAKER): 11/2014 - c-scope - One 4 mm polyp in the cecum; One 3 mm polyp transverse colon; Internal hemorrhoids. Pathology - tubular adenoma; focal hyperplastic change, benign lymphoid aggregate 06/2022 - colonoscopy - single small sessile polyp descending colon. Multiple medium-sized non-bleeding internal hemorrhoids. Multiple medium diverticula sigmoid colon Dr. Shmuel Mccracken Assessment & Plan (05/15/2024 4:42 PM ABSTRACT MAKER): 11/2014 - c-scope - One 4 mm polyp in the cecum; One 3 mm polyp transverse colon; Internal hemorrhoids. Pathology - tubular adenoma; focal hyperplastic change, benign lymphoid aggregate 06/2022 - colonoscopy - single small sessile polyp descending colon. Multiple medium-sized non-bleeding internal hemorrhoids. Multiple medium diverticula sigmoid colon Dr. Shmuel Mccracken Assessment & Plan (04/21/2023 8:39 PM ABSTRACT MAKER): 11/2014 - c-scope - One 4 mm polyp in the cecum; One 3 mm polyp transverse colon; Internal hemorrhoids. Pathology - tubular adenoma; focal hyperplastic change, benign lymphoid aggregate 06/2022 - colonoscopy - single small sessile polyp descending colon. Multiple medium-sized non-bleeding internal hemorrhoids. Multiple medium diverticula sigmoid colon Dr. Shmuel Mccracken Assessment & Plan (04/21/2022 11:07 AM ABSTRACT MAKER): 11/2014 - c-scope - One 4 mm polyp in the cecum; One 3 mm polyp transverse colon; Internal hemorrhoids. Pathology - tubular adenoma; focal hyperplastic change, benign lymphoid aggregate Referred to GI Mar 2021 for repeat screening. Never scheduled. [facility] would be more convenient for her than Referral placed Dr. Shmuel Mccracken [address], [address] [place], [address] Assessment & Plan (04/15/2021 7:24 AM ABSTRACT MAKER): 11/2014 - c-scope - One 4 mm polyp in the cecum;One 3 mm polyp in the transverse colon;Internal hemorrhoids. Pathology - tubular adenoma; focal hyperplastic change, benign lymphoid aggregate Assessment & Plan (04/02/2020 10:00 AM ABSTRACT MAKER): 11/2014 - c-scope - One 4 mm polyp in the cecum;One 3 mm polyp in the transverse colon;Internal hemorrhoids. Pathology - tubular adenoma; focal hyperplastic change, benign lymphoid aggregate Hiatal hernia 04/02/2020 Overview (04/15/2021): 11/2014 - EGD - Small hiatus hernia; Erythematous mucosa in the antrum; Normal examined duodenum. Pathology - benign gastric mucosa; negative H. pylori Hypertension, essential 04/02/2020 Assessment & Plan (08/08/2024 4:44 PM CDT): 04/2022 - Cr 0.85, eGFR 73 Urine microalb negative Total 208; Trig 151; HDL 62; LDL 116 01/2023 - Cr 0.90, eGFR 68 Total 268; Trig 247; HDL 70; LDL 149 H/H 15.6/50.6 Urine microalb negative 05/15/2024 - Cr 0.93, eGFR 64 Total 191; Trig 145; HDL 73; LDL 93 Nifedipine 60 mg daily Losartan 100 mg seemed to make blood pressure worse rather than better BP Readings from Last 4 Encounters: 08/08/24 146/82 07/24/24 163/78 07/13/24 139/79 05/15/24 142/76 Reasonable control. No renal impairment. Cont current Assessment & Plan (05/15/2024 4:42 PM ABSTRACT MAKER): 04/2022 - Cr 0.85, eGFR 73 Urine microalb negative Total 208; Trig 151; HDL 62; LDL 116 01/2023 - Cr 0.90, eGFR 68 Total 268; Trig 247; HDL 70; LDL 149 H/H 15.6/50.6 Urine microalb negative Nifedipine 60 mg daily Losartan 100 mg seemed to make blood pressure worse rather than better BP Readings from Last 4 Encounters: 05/15/24 144/80 04/22/23 134/76 05/05/22 134/81 04/21/22 154/78 No renal impairment 142/76 on recheck today. Mildly elevated. Discussed blood pressure goals and handout provided Patient will monitor BP at home and let us know if readings > 140/90 Assessment & Plan (04/21/2023 8:43 PM ABSTRACT MAKER): 04/2022 - Cr 0.85, eGFR 73 Urine microalb negative Total 208; Trig 151; HDL 62; LDL 116 01/2023 - Cr 0.90, eGFR 68 Total 268; Trig 247; HDL 70; LDL 149 H/H 15.6/50.6 Urine microalb negative Losartan 100 mg seemed to make blood pressure worse rather than better Doing much better back on the nifedipine 60 mg daily Assessment & Plan (05/05/2022 3:24 PM ABSTRACT MAKER): 04/21/2022 - Cr 0.85, eGFR 73 Urine microalb negative Total 208; Trig 151; HDL 62; LDL 116 Losartan 100 mg seemed to make blood pressure worse rather than better Doing much better back on the nifedipine 60 mg daily Taking magnesium to help with the muscle cramps Encouraged continued exercise Cont current Assessment & Plan (04/21/2022 11:08 AM ABSTRACT MAKER): 03/2021 - Cr 0.96, eGFR 63 Nifedipine 60 mg daily Says that the nifedipine causes leg cramps at night. I know that's what's causing it because it correlates with it all the time Lisinopril has made her dizzy in the past Discussed that BP goal is less than 150/90 Would consider adding an additional BP med, so she could take nifedipine every other day. Discussed trying ARB or amlodipine instead She has 30 days of nifedipine left. Would like to complete that before starting something new. Will try ARB handout provided [email or web address] Assessment & Plan (04/15/2021 11:36 AM ABSTRACT MAKER): 03/2020 - Cr 0.68, eGFR 89 Nifedipine 60 mg daily BP well controlled Goal BP < 140/90 Cont current Assessment & Plan (05/09/2020 4:33 PM ABSTRACT MAKER): Controlled at last office visit (126/58) Compliant with nifedipine 60 mg daily based on refill requests Recheck at followup Assessment & Plan (04/02/2020 12:37 PM ABSTRACT MAKER): Well controlled Cont current Labs today Release for prior records Class 1 obesity due to exces s calories with serious comorbidity and body mass index (BMI) of 33.0 to 33.9 in adult 04/02/2020 Assessment & Plan (08/08/2024 3:15 PM CDT): Wt Readings from Last 3 Encounters: 08/08/24 93.9 kg (207 lb) 07/25/24 94.3 kg (207 lb 12.8 oz) 07/24/24 95.2 kg (209 lb 12.8 oz) 05/15/24 - 237 lbs 04/22/23 - 244 lbs 05/05/22 - 252 lbs 04/21/22 - 254 lbs 03/2021 - 275 lbs 04/2020 - 222 lbs 03/2020 - 213 lbs 30 lbs weight loss since last office visit Body mass index is 33.41 kg/m . Assessment & Plan (05/15/2024 11:21 AM ABSTRACT MAKER): Wt Readings from Last 3 Encounters: 05/15/24 107.5 kg (237 lb) 04/22/23 110.7 kg (244 lb) 05/05/22 114.3 kg (252 lb) 04/21/22 - 254 lbs 03/2021 - 275 lbs 04/2020 - 222 lbs 03/2020 - 213 lbs 7 lbs weight loss over last 12 months discussed healthy diet, exercise and adequate sleep Body mass index is 38.27 kg/m . Comorbidity - HTN Assessment & Plan (04/22/2023 9:09 AM ABSTRACT MAKER): Wt Readings from Last 3 Encounters: 04/22/23 110.7 kg (244 lb) 05/05/22 114.3 kg (252 lb) 04/21/22 115.2 kg (254 lb) 03/2021 - 275 lbs 04/2020 - lbs 03/2020 - 213 lbs 10 lbs weight loss over last 12 months discussed healthy diet, exercise and adequate sleep Body mass index is 39.4 kg/m . Comorbidity - HTN Assessment & Plan (05/05/2022 3:17 PM ABSTRACT MAKER): Wt Readings from Last 3 Encounters: 05/05/22 114.3 kg (252 lb) 04/21/22 115.2 kg (254 lb) 04/15/21 124.7 kg (275 lb) 04/2020 - 222 lbs 03/2020 - 213 lbs discussed healthy diet, exercise and adequate sleep Body mass index is 40.69 kg/m . Assessment & Plan (04/21/2022 10:49 AM ABSTRACT MAKER): Wt Readings from Last 3 Encounters: 04/21/22 115.2 kg (254 lb) 04/15/21 124.7 kg (275 lb) 05/09/20 100.7 kg (222 lb) 03/2020 - 213 lbs discussed healthy diet, exercise and adequate sleep Body mass index is 41.02 kg/m . Assessment & Plan (04/15/2021 11:36 AM ABSTRACT MAKER): Wt Readings from Last 3 Encounters: 04/15/21 124.7 kg (275 lb) 05/09/20 100.7 kg (222 lb) 04/02/20 96.6 kg (213 lb) discussed healthy diet, exercise and adequate sleep Body mass index is 44.41 kg/m . recommend at least 10 minutes of moderate intensity exercise most days of the week with a goal of 150 minutes weekly. Discussed trying to find an activity that is enjoyable Assessment & Plan (05/09/2020 4:30 PM ABSTRACT MAKER): discussed healthy diet, exercise and adequate sleep Body mass index is 35.83 kg/m . Comorbidity - HTN Assessment & Plan (04/02/2020 12:36 PM ABSTRACT MAKER): discussed healthy diet, exercise and adequate sleep Body mass index is 34.38 kg/m . Acquired hypothyroidism 04/02/2020 Assessment & Plan (08/08/2024 12:54 PM CDT): 03/2020 - TSH 4.32 (H) Levothyroxine 137 mcg daily increased to 150 mcg daily 03/2021 - TSH 0.14 (L); fT4 1.78 (H) Levothyroxine decreased to 75 mcg one day a week, 150 mg 6 days a week 04/2022 - TSH 0.49 01/2023 - TSH 0.78 04/2024 - TSH 0.08 (L) Assessment & Plan (05/14/2024 8:03 PM ABSTRACT MAKER): 03/2020 - TSH 4.32 (H) Levothyroxine 137 mcg daily increased to 150 mcg daily 03/2021 - TSH 0.14 (L); fT4 1.78 (H) Levothyroxine decreased to 75 mcg one day a week, 150 mg 6 days a week 04/2022 - TSH 0.49 01/2023 - TSH 0.78 Assessment & Plan (04/21/2023 8:44 PM ABSTRACT MAKER): 03/2020 - TSH 4.32 (H) Levothyroxine 137 mcg daily increased to 150 mcg daily 03/2021 - TSH 0.14 (L); fT4 1.78 (H) Levothyroxine decreased to 75 mcg one day a week, 150 mg 6 days a week 04/2022 - TSH 0.49 01/2023 - TSH 0.78 Assessment & Plan (05/05/2022 3:16 PM ABSTRACT MAKER): 03/2020 - TSH 4.32 (H) Levothyroxine 137 mcg daily increased to 150 mcg daily 03/2021 - TSH 0.14 (L); fT4 1.78 (H) Levothyroxine decreased to 75 mcg one day a week, 150 mg 6 days a week 04/21/2022 - TSH 0.49 Assessment & Plan (04/21/2022 6:11 AM ABSTRACT MAKER): 03/2020 - TSH 4.32 (H) Levothyroxine 137 mcg daily increased to 150 mcg daily 03/2021 - TSH 0.14 (L); fT4 1.78 (H) Levothyroxine decreased to 75 mcg one day a week, 150 mg 6 days a week Assessment & Plan (04/15/2021 7:23 AM ABSTRACT MAKER): 03/2020 - TSH 4.32 (H) Levothyroxine 137 mcg daily increased to 150 mcg daily Assessment & Plan (04/02/2020 12:39 PM ABSTRACT MAKER): Labs today Recurrent major depressive disorder, in full rem ission 04/02/2020 Assessment & Plan (05/14/2024 8:03 PM ABSTRACT MAKER): Patient stopped her SSRI (fluoxetine 20 mg) in 2020, and is doing well Assessment & Plan (04/21/2023 8:40 PM ABSTRACT MAKER): Patient stopped her SSRI (fluoxetine 20 mg) in 2020, and is doing well Assessment & Plan (04/21/2022 6:12 AM ABSTRACT MAKER): Patient stopped her SSRI (fluoxetine 20 mg) in 2020, and is doing well Assessment & Plan (04/15/2021 11:33 AM ABSTRACT MAKER): Patient has stopped her SSRI (fluoxetine 20 mg), and is doing well Assessment & Plan (05/09/2020 4:30 PM ABSTRACT MAKER): Doing well on SSRI Assessment & Plan (04/02/2020 12:39 PM ABSTRACT MAKER): OK to space SSRI to every OTHER day I am not aware of any DNA testing that is available outside of research studies for assessment of depression and help with choosing medical therapy Monitor symptoms on every OTHER day medicine Resolved Problems Problem Noted Date Diagnosed Date Resolved Date COVID-19 04/07/2023 04/21/2023 Mixed hyperlipidemia 04/16/2021 024 Assessment & Plan (04/27/2022 12:33 PM ABSTRACT MAKER): 04/21/2022 - Total 208; Trig 151; HDL 62; LDL 116 Assessment & Plan (04/21/2022 6:10 AM ABSTRACT MAKER): 03/2021 - total 234; Trig 190; HDL 63; LDL 133 Encounters Date Type Department Care Team Description 08/22/2024 3:00 PM CDT Clinical Support [facility] Department of Otolaryngology Head-Neck Division [address] [place] [address] 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) (Primary Dx) 08/22/2024 Telephone [facility] [address] [facility] [address] [place] [address] Jayna Clarke 08/21/2024 Telephone [facility] [address] [facility] [address] [place] [address] Hilary Rousseau, quality control manager Discharge Follow Up 08/17/2024 7:37 AM CDT Anesthesia Event [facility] Operating Room 1 [place] [address] Xvaier Prince MD Dippolito, Jenny Irene, NP 08/17/2024 7:30 AM CDT - 08/17/2024 12:25 PM CDT Surgery [facility] Operating Room 1 [place] [phone] Elier Quintero MD PHARYNGECTOMY-ROBOTIC ASSISTED 08/17/2024 5:34 AM CDT - 08/19/2024 2:11 PM CDT Hospital Encounter [address] [phone] Elier Quintero MD 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) (Primary Dx); 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) Discharge Disposition: Discharge to home or self care 08/15/2024 Results Follow-Up Family Care at [address] [phone] Horacio Goldberg NP 08/14/2024 3:00 PM CDT Ancillary Procedure [facility] Imaging at [address] [phone] Acute cough; COVID-19 08/14/2024 10:40 AM CDT Ancillary Procedure [facility] Imaging at [address] [phone] Pain in left foot 08/14/2024 10:30 AM CDT Office Visit [facility] Convenient Care at [address] [phone] Lynnette Coelho NP Closed nondisplaced fracture of fifth metatarsal bone of left foot, initial encounter (Primary Dx) 08/14/2024 Results Follow-Up [facility] Convenient Care at [address] [phone] Lynnette Coelho NP 08/10/2024 Telephone [facility] [address] [facility] [address] [place] [address] 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 Roman, quality control manager pre-surgical check-in 08/09/2024 7:30 AM CDT Pre-Admission Testing [facility] Center for Preoperative Assessment and Planning [facility] ([facility]) [address] [place] [phone] Preop examination (Primary Dx); Acquired hypothyroidism 08/08/2024 3:00 PM CDT Office Visit Family Care at [address] [phone] Juhi Espinoza MD COVID-19 (Primary Dx); Community acquired pneumonia; 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); Acquired hypothyroidism; Elevated hematocrit; Prediabetes; Hypertension, essential; History of colon polyps; Class 1 obesity due to excess calories with serious comorbidity and body mass index (BMI) of 33.0 to 33.9 in adult 08/08/2024 Results Follow-Up [facility] at [address] [place] [phone] Juhi Espinoza MD 08/07/2024 12:15 PM CDT Ancillary Procedure [facility] Imaging at [address] [phone] Acute cough 08/07/2024 Nurse Triage Family [facility] at [address] [place] [phone] Juhi Espinoza MD Acute cough (Primary Dx) 08/01/2024 Telephone [facility] [address] [place] [address] Brit Samson RN 08/01/2024 Telephone [facility] Oncology [address] [facility] Floor 5 [place] [address] Santa Rodriguez, GILES 07/28/2024 Documentation [facility] [address] [place] [address] [address] [place] [address] Jacqui Elizondo LCSW 07/28/2024 Documentation [facility] [address] [phone] Jacqui Elizondo, PLASTIC MOLDER 07/27/2024 Telephone [facility] Radiation Oncology [address] [place] [phone] Damien Valles MD 07/26/2024 2:54 PM CDT - 07/26/2024 11:59 PM CDT Hospital Encounter [facility] Imaging and Radiology [id number] [place] [phone] 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); Cervical lymphadenopathy Discharge Disposition: Discharge to home or self care 07/26/2024 2:53 PM CDT - 07/26/2024 11:59 PM CDT Hospital Encounter [facility] Imaging and Radiology [address] [place] [phone] 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); Cervical lymphadenopathy Discharge Disposition: Discharge to home or self care 07/26/2024 Results Follow-Up [facility] Radiation Oncology [address] [place] [phone] Damien Valles MD 07/26/2024 Documentation [facility] [address] [place] [phone] Jacqui Elizondo, PLASTIC MOLDER 07/26/2024 Telephone [facility] [address] [place] [phone] Hilary Rousseau RN Navigator Initial Call 07/25/2024 4:00 PM CDT Office Visit [facility] Department of Otolaryngology Head-Neck Division [address] [facility] 5 [place] [address] Shahram Rosas MD 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) (Primary Dx); Cervical lymphadenopathy 07/25/2024 Telephone [facility] Radiation Oncology [address] [place] [phone] Damien Valles MD 07/24/2024 2:00 PM CDT Consult [facility] Radiation Oncology [address] [place] [address] Damien Valles MD 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) (Primary Dx); Cervical lymphadenopathy 07/14/2024 Orders Only [facility] [address] [address] Magdiel Campbell MD Cervical lymphadenopathy 07/13/2024 2:15 PM CDT Office Visit [facility] Oncology [facility] Floor 5 [place] [phone] Magdiel Campbell MD 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) (Primary Dx); Cervical lymphadenopathy; Mediastinal lymphadenopathy; Squamous cell carcinoma of unknown origin 07/13/2024 Orders Only [facility] Oncology [address] [place] [address] Floor 5 [place] [phone] Magdiel Campbell MD Cervical lymphadenopathy (Primary Dx) 07/13/2024 Telephone [facility] ([facility]) - [facility] ENT [address] [facility] 11th [place] [address] [place] [address] Maribel Woodard MS 07/07/2024 Results Follow-Up [facility] at [address] [place] [phone] Juhi Espinoza MD Cervical lymphadenopathy (Primary Dx); Pulmonary infiltrates; Acute cough; Mediastinal lymphadenopathy; Squamous cell carcinoma of unknown origin 07/06/2024 7:29 AM CDT - 07/06/2024 11:59 PM CDT Hospital Encounter [facility] Imaging and Radiology [address] [place] [phone] Cervical lymphadenopathy; Metastatic carcinoma to lymph node with unknown primary site (HCC); 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, hematopoietic and related tissue (HCC) Discharge Disposition: Discharge to home or self care 06/23/2024 Telephone Family [facility] at [address] [place] [phone] Juhi Espinoza MD Test Results 06/20/2024 Orders Only [facility] [address] [place] [address] Juhi Espinoza MD 06/19/2024 Telephone Family Care at [address] [phone] Juhi Espinoza MD Test Results 06/14/2024 Orders Only [facility] [address] [place] [address] Juhi Espinoza MD 06/11/2024 Patient Message [facility] at [address] [phone] Juhi Espinoza MD Cataract appointment/surgery from Last 3 Months Immunizations Immunization Administration Dates Next Due Influenza, Quad, Adjuvantate d, Intramuscular 02/20/2021 Influenza, Quadrivalent, Hig h Dose, Preservative Free, Intrr 04/21/2022,04/02/2020 Influenza, Quadrivalent, Spl it, Preservative Free, Intramuscular 04/22/2023 Influenza, Trivalent, High D ose, Split, Preservative Free, Intramuscular 03/28/2024,02/11/2018,04/23/2016 Pfizer SARS-CoV-2 Monovalent Vaccination (12+ Yrs) PURPLE 03/31/2021,07/01/2020,06/03/2020 Pneumococcal Conjugate PCV 13 04/23/2016 Pneumococcal Polysaccharide PPV23 04/15/2021 ZOSTER Recombinant 11/10/2022 Surgical History Surgery Date Site/Laterality Comments KNEE ARTHROPLASTY Bilateral PELVIC LAPAROSCOPY WRIST FRACTURE SURGERY Left COLONOSCOPY W/ POLYPECTOMY 06/30/2022 FRACTURE SURGERY JOINT REPLACEMENT ABDOMINAL SURGERY Medical History Medical History Date Comments Hypertension Hypothyroid Covid-19 11/14/2019 Mixed hyperlipidemia 04/15/2021 Prediabetes 04/21/2022 Covid-19 04/06/2023 HL (hearing loss) 2016 Tinnitus 2019 Covid-19 08/08/2024 PONV (postoperative nausea and vomiting) Motion sickness Family History Medical History Relation Name Comments Arrhythmia Brother 1 No Known Problems Brother 2 Pancreatic cancer Cousin 1 Pancreatic cancer Cousin 2 Alcohol abuse Father Brian Choi Hypertension Father Brian Choi Pneumonia Father Brian Choi Breast cancer Father's Sister 1 Jordana Demarco Cancer Father's Sister 1 Jordana Demarco Breast cancer Father's Sister 2 Breast cancer Father's Sister 3 Anemia Mother Jailyn Choi Cancer Mother Jailyn Choi Colon cancer Mother Jailyn Choi Miscarriages / Stillbirths Mother Jailyn rivers Breast cancer Mother's Sister Jesenia Barrios Cancer Mother's Sister Jesenia Barrios Asthma Other 1 Colon cancer Other 2 Hypertension Other 3 Osteoporosis Other 4 Thyroid disease Other 5 Allergies Sister 1 Arrhythmia Sister 2 No Known Problems Sister 3 Katy Miller Anesthesia problems Neg Hx Endometrial cancer Neg Hx Ovarian cancer Neg Hx Prostate cancer Neg Hx Relation Name Status Comments Brother 1 Alive Brother 2 Alive Cousin 1 Cousin 2 Alive Father Brian Choi (Age 55) Father's Sister 1 Jordana Demarco Father's Sister 2 Alive Father's Sister 3 Alive Mother Jailyn Choi (Age 53) Mother's Sister Jesenia Barrios Other 1 Other 2 Other 3 Other 4 Other 5 Sister 1 Sister 2 Alive Sister 3 Katy Miller Alive Social History Tobacco Use Types Packs/Day Years Used Date Smoking Tobacco: Former Cigarettes 0.1 9 1 977 - 1985 Passive Smoke Exposure: Past Smokeless Tobacco: Never Tobacco Cessation:Counseling Given: Not Answered Comments:Quit>40 years ago Alcohol Use Standard Drinks/Week Comments Yes 0 (1 standard drink = 0.6 oz pur e alcohol) Occassionally [facility] Utilities Answer Date Recorded In the past 12 months has [employer] electric, gas, oil, or water company threatened to shut off services in your home? No 07/28/2024 Social Connection and Isolat ion Panel [NHANES] Answer Date Recorded In a typical week, how many times do you talk on the phone with family, friends, or neighbors? More than three times a week 07/28/2024 How often do you get togethe r with friends or relatives? More than three times a week 07/28/2024 How often do you attend chur ch or tenriism services? 1 to 4 times per year 07/28/2024 Do you belong to any clubs o r organizations such as rastafari groups, unions, fraternal or athletic groups, or school groups? Yes 07/28/2024 How often do you attend meet ings of the clubs or organizations you belong to? More than 4 times per year 07/28/2024 Are you , , di vorced, , never , or living with a partner? 07/28/2024 AUDIT-C Answer Date Recorded Q1: How often do you have a drink containing alcohol? Never 08/17/2024 Q2: How many drinks containi ng alcohol do you have on a typical day when you are drinking? Patient does not drink Q3: How often do you have si x or more drinks on one occasion? Never 08/17/2024 Overall Financial Resource Strain (CARDIA) Answe r Date Recorded How hard is it for you to pa y for the very basics like food, housing, medical care, and heating? Not hard at all 07/28/2024 PHQ-2 Answer Date Recorded PHQ-2 Total Score 0 07/28/2024 Hunger Vital Sign Answer Date Recorded Within the past 12 months, y ou worried that your food would run out before you got the money to buy more. Never true 07/29/19 25 Within the past 12 months, t he food you bought just didn't last and you didn't have money to get more. Never true 07/28/2024 PRAPARE - Transportation Answer Date Re corded In the past 12 months, has l ack of transportation kept you from medical appointments or from getting medications? No 07/18 In the past 12 months, has l ack of transportation kept you from meetings, work, or from getting things needed for daily living? No 07/28/2024 Housing Stability Vital Sign Answer Tung e Recorded In the last 12 months, was t here a time when you were not able to pay the mortgage or rent on time? No 07/28/2024 In the past 12 months, how m any times have you moved where you were living? 0 07/28/2024 At any time in the past 12 m [facility], were you homeless or living in a fdc (including now)? No 07/28/2024 Personal Safety Answer Date Recorded Have you ever been in or are you currently in a harmful physical or emotional relationship or is someone making you feel afraid or unsafe? Denies 08/17/2024 Comments No Sex and Gender Information Value Date Recorded Sex Assigned at Not on file Legal Sex Female 11:24 PM ABSTRACT MAKER Gender Identity Female 03/29/2020 5:42 PM ABSTRACT MAKER Sexual Orientation Straight 03/29/2020 5: 42 PM ABSTRACT MAKER Obstetrics History Para Term AB IAB SAB Ectopic Multiple Livin g Live Births 0 0 0 0 0 0 0 0 0 0 0 Last Filed Vital Signs Vital Sign Reading Time Taken Comments Blood Pressure 120/78 08/19/2024 11:00 AM CDT Pulse 84 08/19/2024 11:00 AM CDT Temperature 36.5 C (97.7 F) 08/19/2024 11:00 AM CDT Respiratory Rate 18 08/19/2024 11:00 AM CDT Oxygen Saturation 94% 08/19/2024 11:00 AM CDT Inhaled Oxygen Concentration - - Weight 93.2 kg (205 lb 6.4 oz) 08/17/2024 9:25 P M CDT Height 167.6 cm (5' 6 ) 08/17/2024 9:25 PM CDT Body Mass Index 33.15 08/17/2024 9:25 PM CDT Plan of Treatment Health Maintenance Due Date Last Done Comments Zoster Vaccine (2 of 2) 01/05/2023 11/10/2022 Covid-19 Vaccine (5 - Pfizer risk season) 2024 03/28/2024, 03/31/2021, 07/01/2020, Additional history exists Breast Cancer Screening-Mammogram 05/15/2025 05/15/2024, 07/09/2021, 04/03/2020, Additional history exists Well Visit 65+ 05/15/2025 05/15/2024, 07/2023, 04/21/2022, Additional history exists Colon Cancer Screening-Colonoscopy 07/02/2025 07/02/2022, 06/30/2022, 12/13/2014 Depression Screening 07/28/2025 07/28/2024, 05/15/2024, 04/22/2023, Additional history exists Fall Risk Assessment 08/19/2025 08/19/2024, 07/24/2024, 05/15/2024, Additional history exists Osteoporosis Screening-Bone Density Scan 07/09/2026 07/09/2021 Pneumococcal vaccine 65+ Completed 04/15/2021, 08/2016 Hepatitis C Screening Completed 04/21/2022 Colon Cancer Screening-CT Colonography Discontinued 07/02/2022, 06/30/2022, 12/13/2014 Colon Cancer Screening-DNA Stool Discontinued 07/02/2022, 06/30/2022, 12/13/2014 Colon Cancer Screening-FIT Discontinued 07/02, 06/30/2022, 12/13/2014 Colon Cancer Screening-Sigmoidoscopy Discontinued 07/02/2022, 06/30/2022, 12/13/2014 Influenza Vaccine Completed 03/28/2024, , 04/21/2022, Additional history exists Hepatitis B Screening Completed 05/15/2024 DTaP/Tdap/Td Vaccine Discontinued Procedures Procedure Name Priority Date/Time Associated Diagnosis Comments EGFR Timed 08/18/2024 1:10 AM CDT BASIC METABOLIC PANEL Timed 08/18/2024 1:10 AM CDT XR ABDOMEN AP 1 VIEW IP Routine 08/17/2024 12:20 PM CDT ANESTHESIA INTUBATION Routine 08/17/2024 8:40 AM CDT PERIPHERAL LINE Routine 08/17/2024 8:39 AM CDT DIRECT LARYNGOSCOPY 08/17/2024 7:36 AM CDT 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 Sonia GARCIA 08/09@1541- Per Aleksandra via email reschedule to 08/17- DMF Special Needs SP [employer]ot B CHECK SAMPLE STAT 08/17/2024 7:20 AM CDT XR CHEST PA LATERAL 2 VIEWS Routine 08/14/2024 2:37 PM CDT Acute cough COVID-19 XR FOOT LEFT 3 OR MORE VIEWS Schedule MARSHA, Read MARSHA (Appt Today, Awaiting Results) 08/14/2024 10:45 AM CDT Pain in left foot EGFR Routine 08/09/2024 9:03 AM CDT Preop examination TSH Routine 08/09/2024 9:03 AM CDT Acquired hypothyroidism BASIC METABOLIC PANEL Routine 08/09/2024 9:03 AM CDT Preop examination CBC WITHOUT DIFFERENTIAL Routine 08/09/2024 9:03 AM CDT Preop examination TYPE AND SCREEN 14 DAY Routine 08/09/2024 9:03 AM CDT Preop examination POC INFLUENZA A/B, COVID-19 ANTIGEN Routine 08/08/2024 3:29 PM CDT COVID-19 XR CHEST PA LATERAL 2 VIEWS Routine 08/07/2024 12:21 PM CDT Acute cough CT SOFT TISSUE NECK W CONTRAST Schedule Routine, Read Routine (OP Routine) 07/26/2024 3:14 PM CDT 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) Cervical lymphadenopathy CT CHEST WO CONTRAST Schedule Routine, Read Routine (OP Routine) 07/26/2024 3:09 PM CDT 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) Cervical lymphadenopathy SURGICAL PATHOLOGY Routine 07/14/2024 7:52 AM CDT Cervical lymphadenopathy PET/CT FDG SKULL TO THIGH Schedule Routine, Read Routine (OP Routine) 07/06/2024 9:29 AM CDT Cervical lymphadenopathy Metastatic carcinoma to lymph node with unknown primary site (HCC) 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, hematopoietic and related tissue (HCC) SCAN - RADIOLOGY/IMAGING 06/20/2024 XR KNEE RIGHT 3 VIEWS Schedule Routine, Read Routine (OP Routine) 06/14/2024 2:38 PM ABSTRACT MAKER US SOFT TISSUE HEAD NECK Schedule Routine, Read Routine (OP Routine) 06/14/2024 2:37 PM ABSTRACT MAKER SCAN - RADIOLOGY/IMAGING 06/14/2024 SCREENING MAMMOGRAM BILATERAL W VICENTE Schedule Routine, Read Routine (OP Routine) 05/15/2024 2:09 PM ABSTRACT MAKER Screening mammogram, encounter for COLONOSCOPY Routine 06/30/2022 HEPATITIS C ANTIBODY Routine 04/21/2022 11:36 AM ABSTRACT MAKER Annual physical exam Screening for viral disease DEXA AXIAL SKELETON BONE DENSITY 1 OR MORE SITES Schedule Routine, Read Routine (OP Routine) 07/09/2021 12:38 PM CDT Annual physical exam Asymptomatic postmenopausal state from Last 3 Months or Most Recently Relevant to Health Maintenance Results * eGFR (08/18/2024 1:10 AM CDT) eGFR 73 >=60 mL/min/1. 73 m2 Comment: Interpretive Data Reference Interval Normal >/= 90 mL/min/1.73m2 Mildly decreased* 60 - 89 mL/min/1.73m2 Mildly to moderately decreased 45 - 59 mL/min/1.73m2 Moderately to severely decreased 30 - 44 mL/min/1.73m2 Severely decreased 15 - 29 mL/min/1.73m2 Kidney Failure < 15 mL/min/1.73m2 *Relative to young adult level Estimated glomerular filtration rate is determined by the 2020 CKD-EPI equation recommended by the National Kidney Foundation (A Unifying Approach to GFR Estimation: Recommendations of the NKF-ASK Task Force on Reassessing the Inclusion of Race in Diagnosing Kidney Disease, JASN 2020). The CKD-EPI equation should not be used for patients with unstable renal function and has not been validated in children and those over 70. Current interpretive data was last reviewed 2021. Blood 08/18/2024 1:10 AM CDT 08/18/2024 2:51 AM CDT Elier Quintero MD LAB BLOOD ORDERABLES F inal Result [facility] Department [place] [address] * Basic metabolic panel (08/18/2024 1:10 AM CDT) Sodium 139 135 - 145 mmol/L Potassium, pl 4.4 3.3 - 4.9 mmol/L [facility] Chloride 101 97 - 110 mmol/L [facility] CO2 26 22 - 32 mmol/L [facility] Anion gap 12 2 - 15 mmol/L [facility] BUN 14 6 - 25 mg/dL [facility] Creatinine 0.84 0.60 - 1.10 mg/dL [facility] Glucose 112 70 - 199 mg/dL [facility] Comment: Interpretive Data Fasting glucose >/= 126 mg/dl is diagnostic for diabetes. Fasting is defined as no caloric intake for at least 8 hours. Fasting glucose between 100 mg/dl to 125 mg/dl is diagnostic of prediabetes. In a patient with classic symptoms of hyperglycemia or hyperglycemic crisis, a random glucose >/= 200 mg/dl is diagnostic for diabetes. In the absence of unequivocal hyperglycemia, results should be confirmed by repeat testing. The classification and Diagnosis of Diabetes Diabetes Care 2021; 46: S19-S40. Current interpretive data was last revised 2022. Calcium 9.3 8.5 - 10.3 mg/dL [facility] Blood 08/18/2024 1:10 AM CDT 08/18/2024 2:51 AM CDT us Elier Quintero MD LAB BLOOD ORDERABLES F inal Result [facility] Department [place] [address] * XR Abdomen Ap 1 Vw (08/17/2024 12:20 PM CDT) Anatomical Region Laterality Modality Body, Abdomen N/A Computed Radiogr aphy 08/17/2024 3:17 PM CDT Impressions 08/17/2024 4:19 PM CDT Feeding tube with tip overlying the gastric body. Circular density is seen overlying the left upper quadrant may be external to the patient. Dictated by: Lauren Vicente M.D. The radiology attending physician has personally reviewed this study, and had reviewed and/or edited this written report and agrees with it. Electronically signed by: Ángel Holland M.D. Narrative 08/17/2024 4:19 PM CDT EXAMINATION: Abdomen, one view. HISTORY: Check tube placement. COMPARISON: CT 07/26/2024 Procedure Note Ángel Holland MD - 08/17/2024 EXAMINATION: Abdomen, one view. HISTORY: Check tube placement. COMPARISON: CT 07/26/2024 IMPRESSION: Feeding tube with tip overlying the gastric body. Circular density is seen overlying the left upper quadrant may be external to the patient. Dictated by: Lauren Vicente M.D. The radiology attending physician has personally reviewed this study, and had reviewed and/or edited this written report and agrees with it. Electronically signed by: Ángel Holland M.D. Elier Quintero MD IMG XR PROCEDURES [place] Result * Airway (08/17/2024 8:40 AM CDT) Narrative Edin Cheney DO - 08/17/2024 8:40 AM CDT Edin Cheney DO 08/17/2024 8:41 AM Airway Patient location: OR Indications for airway management: anesthesia and airway protection Difficult airway: no Staff: Supervising provider: Xavier Prince MD Placed by: Resident: Edin Cheney DO Emergent airway documentation: Risks and benefits discussed: yes Consent obtained: yes Consent given by: patient Airway prep: Preoxygenated: yes Patient position: sniffing Mask difficulty assessment: 1 - vent by mask Spontaneous ventilation during airway: absent Sedation level during airway: GA Final airway details: Final airway type: endotracheal airway Tube type: ILEANA tube ETT size: 7.0 mm Cuffed: yes Technique used for successful ETT placement: direct laryngoscopy Insertion site: right nare Blade type: Samantha Blade size: 3 Cormack-Lehane (direct): grade I - full view of glottis Initial cuff pressure: 25 cm H2O Placement verified by: auscultation and CO2 detection Airway secured with: silk tape and tegaderm Number of attempts: 1 us Xavier Prince MD ANESTHESIA ORDERABLES Final Resu lt * Peripheral IV Catheter (08/17/2024 8:39 AM CDT) Narrative Edin Cheney DO - 08/17/2024 8:39 AM CDT Edin Cheney DO 08/17/2024 8:39 AM Peripheral IV Catheter Patient location: OR Staff: Placed by: Resident: Edin Cheney DO Preprocedure prep: Prep solution: chlorhexadine PPE: gloves and provider hat/mask PIV line: Laterality: right Site: foot Catheter size: 20 g Technique: direct visualization Procedure details: good blood return Number of attempts: 1 Assessment: Events: patient tolerated procedure well with no complications us Xavier Prince MD ANESTHESIA ORDERABLES Final Resu lt * Check Sample (08/17/2024 7:20 AM CDT) ABO Rh O Positive [facility] OTHER 08/17/2024 7:20 AM CDT 08/17/2024 7:31 AM CDT us Elier Quintero MD LAB BLOOD ORDERABLES F inal Result [facility] Department [place] [address] [facility] * XR Chest Pa Lateral 2 Views (08/14/2024 2:37 PM CDT) Anatomical Region Laterality Modality Body, Chest N/A Digital Radiogra phy 08/14/2024 8:08 PM CDT Narrative 08/14/2024 8:09 PM CDT EXAM DESCRIPTION: XR CHEST PA LATERAL 2 VIEWS REASON FOR STUDY: cough Follow up 4.21.25 COVID + and pneumonia per patient. Pt still having a cough. No surgery to heart, lungs, or chest. History of sarcoma of right lymph node. Non-smoker. TECHNIQUE: Frontal and lateral radiographic views of the chest were acquired. COMPARISON: 08/07/2024 FINDINGS: LUNGS/PLEURA: There is no focal infiltrate or evidence of pneumothorax. No significant pleural effusion. HEART/MEDIASTINUM: The heart size is normal. Normal mediastinal and hilar contours. LINES/TUBES: None. BONES: No acute findings. OTHER: No other significant finding. IMPRESSION: No acute cardiopulmonary abnormality. THIS IS AN ELECTRONICALLY VERIFIED FINAL REPORT 08/14/2024 8:09 PM - Electronically signed by Abraham Dinh M.D. RW T: Report ID: [id number] Reading Location: [id number] Procedure Note Abraham Dinh MD - 08/14/2024 EXAM DESCRIPTION: XR CHEST PA LATERAL 2 VIEWS REASON FOR STUDY: cough Follow up 4.21.25 COVID + and pneumonia per patient. Pt still having acough. No surgery to heart, lungs, or chest. History of sarcoma of right lymphnode. Non-smoker. TECHNIQUE: Frontal and lateral radiographic views of the chest wereacquired. COMPARISON: 08/07/2024 FINDINGS: LUNGS/PLEURA: There is no focal infiltrate or evidence of pneumothorax. No significant pleural effusion. HEART/MEDIASTINUM: The heart size is normal. Normal mediastinal and hilar contours. LINES/TUBES: None. BONES: No acute findings. OTHER: No other significant finding. IMPRESSION: No acute cardiopulmonary abnormality. THIS IS AN ELECTRONICALLY VERIFIED FINAL REPORT 08/14/2024 8:09 PM - Electronically signed by Abraham ACEVEDO T: Report ID: [id number] Reading Location: [place] [address] Juhi Espinoza MD IMG XR PROCEDURES Final R esult * XR Foot Left 3 or More Views (08/14/2024 10:45 AM CDT) Anatomical Region Laterality Modality Lower Extremities, Foot Left Digital Radiography 08/14/2024 12:1 8 PM CDT Narrative 08/14/2024 12:19 PM CDT EXAM DESCRIPTION: XR FOOT LEFT 3 OR MORE VIEWS REASON FOR STUDY: Pain in Foot, Left, left 5th metatarsal pain after rolling foot on pickleball after she stepped on it. Pt complains of left lateral foot pain after rolling it today. No prior fx or surgery TECHNIQUE: Frontal, oblique, and lateral views of the left foot . COMPARISON: None FINDINGS: BONES/JOINTS: Nondisplaced fracture across the proximal head of the 5th metatarsal. 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 SOFT TISSUES: Unremarkable. IMPRESSION: Nondisplaced fracture across the proximal head of the 5th metatarsal. THIS IS AN ELECTRONICALLY VERIFIED FINAL REPORT 08/14/2024 12:19 PM - Electronically signed by Giuseppe [place] T: Report ID: [id number] Reading Location: [id number] Procedure Note Giuseppe Rosario MD - 08/14/2024 EXAM DESCRIPTION: XR FOOT LEFT 3 OR MORE VIEWS REASON FOR STUDY: Pain in Foot, Left, left 5th metatarsal pain afterrolling foot on pickleball after she stepped on it. Pt complains of left lateral foot pain after rolling it today. No prior fxor surgery TECHNIQUE: Frontal, oblique, and lateral views of the left foot . COMPARISON: None FINDINGS: BONES/JOINTS: Nondisplaced fracture across the proximal head ofthe 5th metatarsal. 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 SOFT TISSUES: Unremarkable. IMPRESSION: Nondisplaced fracture across the proximal head of the 5th metatarsal. THIS IS AN ELECTRONICALLY VERIFIED FINAL REPORT 08/14/2024 12:19 PM - Electronically signed by Giuseppe [place] T: Report ID: [id number] Reading Location: [id number] us Lynnette Coelho SOFTWARE INSTALLATION ENGINEER IMG XR PROCEDURES Final Re sult * TYPE AND SCREEN 14 DAY (08/09/2024 9:03 AM CDT) Norma, indirect Negative ABO Rh O Positive [facility] Blood 08/09/2024 9:03 AM CDT 08/09/2024 9:31 AM CDT Narrative [facility] - 08/09/2024 10:36 AM CDT Is this test being ordered in advance for a procedure?->Yes Expected date of procedure:->08/11/24 Has the patient been transfused in the past 3 months?->No Has the patient been in the past 3 months?->No Meagan Nielsen SOFTWARE INSTALLATION ENGINEER LAB BLOOD BANK TEST ORD ERABLES Final Result [facility] Department [place] [address] * (ABNORMAL) eGFR (08/09/2024 9:03 AM CDT) [facility] eGFR 41(L) >=60 mL/min/1. 73 m2 Comment: Interpretive Data Reference Interval Normal >/= 90 mL/min/1.73m2 Mildly decreased* 60 - 89 mL/min/1.73m2 Mildly to moderately decreased 45 - 59 mL/min/1.73m2 Moderately to severely decreased 30 - 44 mL/min/1.73m2 Severely decreased 15 - 29 mL/min/1.73m2 Kidney Failure < 15 mL/min/1.73m2 *Relative to young adult level Estimated glomerular filtration rate is determined by the 2020 CKD-EPI equation recommended by the National Kidney Foundation (A Unifying Approach to GFR Estimation: Recommendations of the NKF-ASK Task Force on Reassessing the Inclusion of Race in Diagnosing Kidney Disease, JASN 2020). The CKD-EPI equation should not be used for patients with unstable renal function and has not been validated in children and those over 70. Current interpretive data was last reviewed 2021. Blood 08/09/2024 9:03 AM CDT 08/09/2024 9:20 AM CDT us Meagan Nielsen SOFTWARE INSTALLATION ENGINEER LAB BLOOD ORDERABLES nal Result [facility] Department [place] [address] * (ABNORMAL) CBC without differential (08/09/2024 9:03 AM CDT) [facility] WBC 8.14 3.80 - 9.90 K/cumm Hgb 15.1 11.9 - 15.5 g/dL [facility] Hct 45.7(H) 35.6 - 45.5 % [facility] Plt 316 150 - 400 K/cumm [facility] MPV 9.6 9.1 - 12.3 fL [facility] RBC 5.19 3.90 - 5.20 M/cumm [facility] MCV 88.1 81.3 - 96.4 fL [facility] MCH 29.1 27.1 - 33.3 pg [facility] MCHC 33.0 32.3 - 35.7 g/dL [facility] RDW CV 14.3 11.1 - 14.9 % [facility] RDW SD 45.8 35.7 - 48.1 fL [facility] NRBC abs 0.00 0.00 - 0.01 K/cumm [facility] Blood 08/09/2024 9:03 AM CDT 08/09/2024 9:20 AM CDT Meagan Nielsen SOFTWARE INSTALLATION ENGINEER LAB BLOOD ORDERABLES Fi nal Result [facility] Department [place] [address] * TSH (08/09/2024 9:03 AM CDT) [facility] Thyroid Stimulating Hormone 0.90 0.30 - 4.20 mcIUnit/mL Blood 08/09/2024 9:03 AM CDT 08/09/2024 9:20 AM CDT Horacio Goldberg SOFTWARE INSTALLATION ENGINEER LAB BLOOD ORDERABLES Fin al Result Performing Organization Address City/[facility] Co de Phone Number [facility] Department [place] [address] * (ABNORMAL) Basic metabolic panel (08/09/2024 9:03 AM CDT) [facility] Sodium 138 135 - 145 mmol/L Potassium, pl 4.0 3.3 - 4.9 mmol/L [facility] Chloride 99 97 - 110 mmol/L [facility] CO2 28 22 - 32 mmol/L [facility] Anion gap 11 2 - 15 mmol/L [facility] BUN 28(H) 6 - 25 mg/dL [facility] Creatinine 1.35(H) 0.60 - 1.10 mg/dL [facility] Glucose 115 70 - 199 mg/dL [facility] Comment: Interpretive Data Fasting glucose >/= 126 mg/dl is diagnostic for diabetes. Fasting is defined as no caloric intake for at least 8 hours. Fasting glucose between 100 mg/dl to 125 mg/dl is diagnostic of prediabetes. In a patient with classic symptoms of hyperglycemia or hyperglycemic crisis, a random glucose >/= 200 mg/dl is diagnostic for diabetes. In the absence of unequivocal hyperglycemia, results should be confirmed by repeat testing. The classification and Diagnosis of Diabetes Diabetes Care 2021; 46: S19-S40. Current interpretive data was last revised 2022. Calcium 9.3 8.5 - 10.3 mg/dL [facility] Blood 08/09/2024 9:03 AM CDT 08/09/2024 9:20 AM CDT Meagan Nielsen SOFTWARE INSTALLATION ENGINEER LAB BLOOD ORDERABLES Fi nal Result [facility] Department [place] [address] * (ABNORMAL) POC Influenza A/B, COVID-19 antigen (08/08/2024 3:29 PM CDT) Influenza A Ag, POC Negative Negative [facility] Influenza B Ag, POC Negative Negative [facility] COVID-19 Ag POC Positive(A) Presumptive Negative, Invalid [facility] Nasopharyngeal 08/08/2024 3: 29 PM CDT Juhi Espinoza MD POINT OF CARE TEST ORDERA BLES Final Result [facility] [id number] [facility] [address] [place] [address] * XR Chest Pa Lateral 2 Views (08/07/2024 12:21 PM CDT) Anatomical Region Laterality Modality Body, Chest N/A Digital Radiogra phy 08/08/2024 7:28 AM CDT Narrative 08/08/2024 7:29 AM CDT EXAM DESCRIPTION: XR CHEST PA LATERAL 2 VIEWS REASON FOR STUDY: cough Pt complains of cough for about week. No surgery to heart, lungs, or chest. History of sarcoma of right lymph node. Non-smoker. TECHNIQUE: Two views COMPARISON: 07/26/2024 CT chest FINDINGS: Heart size and vascularity appear normal. Aortic arch well-defined on the left. Perihilar interstitial densities are noted with a confluence appearance in the right infrahilar regions suggesting peribronchial inflammatory changes with developing atelectasis and or infiltrative new from prior exam. No effusion or pneumothorax. Bony degenerative changes obscures the apices, noted at the shoulders and thoracic spine IMPRESSION: Peribronchial inflammatory changes with developing atelectasis and or infiltrate right infrahilar region. THIS IS AN ELECTRONICALLY VERIFIED FINAL REPORT 08/08/2024 7:29 AM - Electronically signed by Wicho GARCIA T: Report ID: [id number] Reading Location: [id number] Procedure Note Wicho Bhardwaj MD - 08/08/2024 EXAM DESCRIPTION: XR CHEST PA LATERAL 2 VIEWS REASON FOR STUDY: cough Pt complains of cough for about week. No surgery to heart, lungs, orchest. History of sarcoma of right lymph node. Non-smoker. TECHNIQUE: Two views COMPARISON: 07/26/2024 CT chest FINDINGS: Heart size and vascularity appear normal. Aortic arch well-defined on the left. Perihilar interstitial densities are noted with a confluence appearance inthe right infrahilar regions suggesting peribronchial inflammatory changeswith developing atelectasis and or infiltrative new from prior exam. No effusion or pneumothorax. Bony degenerative changes obscures the apices, noted at the shoulders and thoracic spine IMPRESSION: Peribronchial inflammatory changes with developing atelectasisand or infiltrate right infrahilar region. THIS IS AN ELECTRONICALLY VERIFIED FINAL REPORT 08/08/2024 7:29 AM - Electronically signed by Wicho GARCIA T: Report ID: [id number] Reading Location: [id number] Juhi Espinoza MD IMG XR PROCEDURES Final R esult * CT soft tissue neck with contrast (07/26/2024 3:14 PM CDT) Anatomical Region Laterality Modality Head and Neck N/A Computed Tomogra phy 07/27/2024 8:56 AM CDT Impressions 07/27/2024 12:41 PM CDT Enlarged enhancing right level 2 and 1B nodes consistent with metastatic disease. Left lower lobe 4 mm pulmonary nodule. Query metastatic. Electronically signed by: Rox Amaro M.D. Narrative 07/27/2024 12:41 PM CDT EXAM: CT SOFT TISSUE NECK WITH CONTRAST DATE: 07/26/2024 3:45 PM CLINICAL HISTORY: Occult malignancy TECHNIQUE: After the uneventful intravenous administration of 68 mL Optiray 350, computed tomographic images of the neck were obtained in the axial plane. Coronal and sagittal reformatted images were obtained. COMPARISON:PET/CT 07/06/2024. FINDINGS: The visualized intracranial compartment is unremarkable. .The orbits are unremarkable. The pharynx and hypopharynx are unremarkable. Evaluation of the oral cavity limited due to beam hardening artifact from dental amalgam but no asymmetry is identified. No asymmetry of the larynx noted An enlarged enhancing right level IIb node measuring 2.7 x 2 x 3.7 cm with asymmetric cystic change/necrosis and adjacent 1.1 cm node are seen. Enlarged 1.4 cm short axis right level 2A node and right level 5B 1.0 x 0.8 cm enhancing node is present. A small right level 5A node 5 mm short axis is present. No fluid collection is seen in the superficial or deep soft tissues of neck. The parotid and submandibular glands are unremarkable without glandular or ductal calculi. The thyroid is small/atrophic. Mild sphenoid mucosal thickening is present.. Mild right mastoid effusion is seen.. Marked ascites and spondylosis noted C4-C5 and C5-C6. A 4 mm left lower lobe superior segmental nodule is seen on image 60 of series 3. Please refer to same day CT chest. Procedure Note Rox Amaro MD - 07/27/2024 EXAM: CT SOFT TISSUE NECK WITH CONTRAST DATE: 07/26/2024 3:45 PM CLINICAL HISTORY: Occult malignancy TECHNIQUE: After the uneventful intravenous administration of 68 mL Optiray 350, computed tomographic images of the neck were obtained in the axial plane. Coronal and sagittal reformatted images were obtained. COMPARISON:PET/CT 07/06/2024. FINDINGS: The visualized intracranial compartment is unremarkable. .The orbits are unremarkable. The pharynx and hypopharynx are unremarkable. Evaluation of the oral cavity limited due to beam hardening artifact from dental amalgam but no asymmetry is identified. No asymmetry of the larynx noted An enlarged enhancing right level IIb node measuring 2.7 x 2 x 3.7 cm with asymmetric cystic change/necrosis and adjacent 1.1 cm node are seen. Enlarged 1.4 cm short axis right level 2A node and right level 5B 1.0 x 0.8 cm enhancing node is present. A small right level 5A node 5 mm short axis is present. No fluid collection is seen in the superficial or deep soft tissues of neck. The parotid and submandibular glands are unremarkable without glandular or ductal calculi. The thyroid is small/atrophic. Mild sphenoid mucosal thickening is present.. Mild right mastoid effusion is seen.. Marked ascites and spondylosis noted C4-C5 and C5-C6. A 4 mm left lower lobe superior segmental nodule is seen on image 60 of series 3. Please refer to same day CT chest. IMPRESSION: Enlarged enhancing right level 2 and 1B nodes consistent with metastatic disease. Left lower lobe 4 mm pulmonary nodule. Query metastatic. Electronically signed by: Rox Amaro M.D. Damien Valles MD IMG CT PROCEDURES Final Result * CT chest without contrast (07/26/2024 3:09 PM CDT) Anatomical Region Laterality Modality Body N/A Computed Tomogra phy 07/26/2024 3:16 PM CDT Impressions 07/26/2024 3:16 PM CDT BILATERAL LOWER LOBE NODULES NOTED, RECOMMEND [facility] CRITERIA FOLLOW-UP. Electronically signed by: Hemant Ocasio M.D. Narrative 07/26/2024 3:16 PM CDT EXAMINATION: CT CHEST WO CONTRAST HISTORY: Head and neck primary cancer. ORDER DATE: 07/26/2024 3:30 PM TECHNIQUE: Multiple axial images of the chest were obtained with 2-D imaging without the administration of contrast. Evaluation of the mediastinum and sumit for adenopathy and other pathology is significantly limited by the lack of intravascular contrast. FINDINGS: Lungs and Central Bronchi: There are 1 or 2 3 to 4 mm size nodules in each posterior lung base along with a small amount of linear scarring.. Pleura: within normal limits. Vessels: . Atherosclerotic changes in the aorta and coronary arteries with calcification. Heart: normal size. No pericardial effusion. Mediastinum and Sumit: within normal limits. Chest Wall and Lower Neck: within normal limits. Upper Abdomen: (As visualized) within normal limits. Bones: /Degenerative disc disease throughout the thoracic spine Procedure Note Hemant Ocasio MD - 07/26/2024 EXAMINATION: CT CHEST WO CONTRAST HISTORY: Head and neck primary cancer. ORDER DATE: 07/26/2024 3:30 PM TECHNIQUE: Multiple axial images of the chest were obtained with 2-D imaging without the administration of contrast. Evaluation of the mediastinum and sumit for adenopathy and other pathology is significantly limited by the lack of intravascular contrast. FINDINGS: Lungs and Central Bronchi: There are 1 or 2 3 to 4 mm size nodules in each posterior lung base along with a small amount of linear scarring.. Pleura: within normal limits. Vessels: . Atherosclerotic changes in the aorta and coronary arteries with calcification. Heart: normal size. No pericardial effusion. Mediastinum and Sumit: within normal limits. Chest Wall and Lower Neck: within normal limits. Upper Abdomen: (As visualized) within normal limits. Bones: /Degenerative disc disease throughout the thoracic spine IMPRESSION: BILATERAL LOWER LOBE NODULES NOTED, RECOMMEND [facility] CRITERIA FOLLOW-UP. Electronically signed by: Hemant Ocasio M.D. Damien Valles MD IMG CT PROCEDURES Final Result * Surgical pathology (07/14/2024 7:52 AM CDT) Tissue specimen (specimen) (Miscellaneous) 07/14/2024 7:52 AM CDT 07/14/2024 7:52 AM CDT Narrative [facility] - 07/20/2024 4:58 PM CDT EPIC results best viewed via link to PDF [facility] Pathology Consult Service [address], [place] [address] Note to Patients: This report may contain a detailed description of human tissue sent by a health care provider to the laboratory for pathologic evaluation. The content of this report is essential for diagnosis and may provide important critical findings. This information may be unfamiliar to patients to review without a medical professional present. It is advised that the patient review this report in the presence of a health care provider who can answer questions and explain the details. SURGICAL PATHOLOGY REPORT * Consult Report * [facility] is providing an additional review of previously collected tissue. FINAL WITH ADDENDUM Patient Name: MARLEN CHOI Address: [address] [place] [id number] Gender: F : 1950 (Age: 73) [facility] #: [id number] Patient Type: [facility] Location: UNKNOWN Taken: 07/14/2024 Received: 07/14/2024 Accessioned: 07/18/2024 Reported: 07/20/2024 Physician(s): Magdiel Campbell MD [facility] Department of Pathology [address] [place], [place] [address] P: [phone] F: [phone] Histology: [phone] Diagnosis: Consult material received from [place], [place] (OSC: [id number]; 06/20/2024). 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 Jayna Devine MD, PhD Report Electronically Reviewed and Signed Out By Jayna Devine MD, PhD 07/20/2024 16:58:36 Microscopic Description and Comment: Hematoxylin and eosin stained sections demonstrate metastatic carcinoma arranged in nests with squamous eddies although the tumor cells themselves appear primarily nonkeratinizing. Tumor cells are strongly positive for p63, compatible with squamous cell carcinoma; tumor cells are also focally positive for CK7 but a majority are negative. Other immunostains are noncontributory. Tissue will be requested for p16 and possible HPV testing. Review of the available electronic medical records, including radiologic imaging, is performed. It appears that no primary tumor has been identified. History: The patient is a 73-year-old woman with history of cervical lymphadenopathy. Materials Received: Received for review are sixteen slides labeled [id number], accompanied by a corresponding pathology report. The material originates from [place], [place]. Selected slide(s) may be digitally scanned for our files, and all materials are returned to the referring institution, along with a copy of our final report. Addenda/Procedures Addendum Ordered: 07/27/2024 Status: Signed Out Addendum Complete: 07/27/2024y: Jayna Devine MD, PhDAddendum Signed Out: 07/27/2024 Addendum Comment Additionally received fifteen unstained slides labeled [id number] for additional materials on [id number]. The material originates from [place], [place]. By this signature, I attest that the above diagnosis is based upon my personal examination of the slides(and/or other material indicated in the diagnosis). Jayna Devine MD, PhDReport Electronically Reviewed and Signed Out By Jayna Devine MD, PhD 07/27/2024 11:20:49 Addendum Ordered: 07/28/2024 Status: Signed Out Addendum Complete: 07/28/2024y: Jayna Devine MD, PhDAddendum Signed Out: 07/28/2024 Addendum Diagnosis - [id number] squamous cell carcinoma Addendum Comment As performed and interpreted at [facility], a p16 immunostain shows strong and diffuse block like staining in tumor cells. HPV in-situ hybridization for high-risk types will be performed and reported in a forthcoming addendum. By this signature, I attest that the above diagnosis is based upon my personal examination of the slides(and/or other material indicated in the diagnosis). Jayna Devine MD, PhDReport Electronically Reviewed and Signed Out By Jayna Devine MD, PhD 07/28/2024 10:08:48 Addendum Ordered: 08/07/2024 Status: Signed Out Addendum Complete: 08/07/2024y: Jayna Devine MD, PhDAddendum Signed Out: 08/07/2024 Addendum Comment Please see below for HPV testing performed by [facility] and reported on 08/06/2024. By this signature, I attest that the above diagnosis is based upon my personal examination of the slides(and/or other material indicated in the diagnosis). Jayna Devine MD, PhDReport Electronically Reviewed and Signed Out By Jayna Devine MD, PhD 08/07/2024 09:15:44 The HPV High Risk test was performed by [facility], [address] [place] [id number]. Any testing required for diagnostic purposes was performed in the Department of Pathology and Immunology at [facility], [address] [place] [address] CLIA # [id number] The performance characteristics of the testing cited in this report (if any) were determined by the [facility] Department of Pathology and Immunology [facility], as part of an ongoing rn quality program and in compliance with federally mandated regulations drawn from the Clinical Laboratory Improvement Act of 1988 (CLIA '88). Some of these tests rely on the use of analyte specific reagents (ASR) and are subject to specific labeling requirements by the US Food and Drug Administration. Such diagnostic tests may only be performed in a facility that is certified by the Department of Health and Human Services as a high complexity laboratory under CLIA '88. The FDA has determined that such clearance or approval is not necessary. ASRs should not be regarded as investigational or for research. ASRs were developed and the performance characteristics determined by the [facility], [facility] Department of Pathology and Immunology. It has not been cleared or approved by the U.S. Food and Drug Administration. Any test designated as LDT was developed and its performance characteristics determined by [facility] [facility]. It has not been cleared or approved by the FDA. This test is used for clinical purposes and should not be regarded as investigational or for research. Report images and/or scanned reports, if included, only viewable in PDF version of report. us Magdiel Campbell MD LAB PATHOLOGY ORDERABLES Fi nal Result [facility] [address] [place] [address] * PET/CT FDG Skull to Thigh (07/06/2024 9:29 AM CDT) Anatomical Region Laterality Modality N/A Positron Emissio n Tomography (PET) 07/06/2024 11:0 9 AM CDT Impressions 07/06/2024 12:45 PM CDT 1. Markedly FDG avid cervical lymphadenopathy consistent with biopsy proven carcinoma. Additional moderately FDG avid bilateral hilar, mediastinal, and internal mammary lymphadenopathy, which may be nonspecific. No PET evidence of primary tumor. 2. Mildly FDG avid groundglass in the left and right lower lobes are indeterminant but likely infectious or inflammatory in nature. Recommend follow up on CT chest in 3 months. Dictated by: Drew Mix M.D. The radiology attending physician has personally reviewed this study, and had reviewed and/or edited this written report and agrees with it. Electronically signed by: MD Ericka Back 07/06/2024 12:45 PM CDT EXAMINATION: TUMOR FDG-PET/CT IMAGING DATE OF STUDY: 07/06/2024 SCANNER: Mosque RADIOPHARMACEUTICAL: 15.9 mCi F-18 Fluorodeoxyglucose (FDG) i.v. 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 Possible primary include: squamous carcinoma of the lung, metaplastic carcinoma of the breast, mucoid epidermoid carcinoma of the salivary gland, and NUT midline carcinoma. The study is requested for diagnosis. Initial treatment strategy. TECHNIQUE: The patient's fasting blood glucose level, measured by glucometer before injection of FDG, was 105 mg/dL. After intravenous administration of FDG, noncontrast CT images were obtained for attenuation correction and for fusion with emission PET images to allow for anatomical localization of PET findings. Emission PET images were then obtained. The study was interpreted on the [employer] workstation. The mean liver SUV (reported for software quality assurance specialist purposes) is 3.2. The total scanned area was skull vertex to proximal thighs. Images of the body were obtained starting 69 minutes after injection of tracer. All reported SUVs are maximum SUVs, unless otherwise specified. COMPARISON: None DESCRIPTORS OF LESION FDG AVIDITY: Minimal: <= blood pool Mild: > blood pool and <= liver Moderate: > liver and <= 2x SUVmax liver Moderate to marked: >2x SUVmax liver and <= 3x SUVmax liver Marked: > 3x SUVmax liver FINDINGS: There is diffuse moderate uptake throughout the axial spine without focal uptake. Mixed sclerotic lytic lesion in the left iliac bone without FDG uptake may represent atypical bone cyst or fibroosseous lesion (image 227). Cervical lymphadenopathy in the right cervical 1 and 2 stations. For example a markedly FDG avid right level 2 cervical lymph node with max SUV of 8.3 measuring 1.5 x 2.4 cm on image 67. Physiologic and symmetric uptake within the vocal chords is noted. There is moderately FDG avid bilateral hilar, mediastinal, and internal mammary lymphadenopathy. For example a lymph node with max SUV 5.6 measuring approximately 1.2 cm in short axis on image 126. Mildly FDG avid groundglass in the left and right lower lobes are indeterminant but may be infectious or inflammatory in nature (image 142 and 152). The most FDG-avid lesion is right level 2 cervical lymph node, has a maximum SUV of 8.3, and approximate axial dimensions of 1.5 x 2.[address] findings: Dental restorations are noted. Mild aortic and coronary atherosclerosis. Colonic diverticulosis without diverticulitis. Degenerative changes of the spine. Procedure Note Robert Morrissey MD - 07/06/2024 EXAMINATION: TUMOR FDG-PET/CT IMAGING DATE OF STUDY: 07/06/2024 SCANNER: Mosque RADIOPHARMACEUTICAL: 15.9 mCi F-18 Fluorodeoxyglucose (FDG) i.v. 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 Possible primary include: squamous carcinoma of the lung, metaplastic carcinoma of the breast, mucoid epidermoid carcinoma of the salivary gland, and NUT midline carcinoma. The study is requested for diagnosis. Initial treatment strategy. TECHNIQUE: The patient's fasting blood glucose level, measured by glucometer before injection of FDG, was 105 mg/dL. After intravenous administration of FDG, noncontrast CT images were obtained for attenuation correction and for fusion with emission PET images to allow for anatomical localization of PET findings. Emission PET images were then obtained. The study was interpreted on the [employer] workstation. The mean liver SUV (reported for software quality assurance specialist purposes) is 3.2. The total scanned area was skull vertex to proximal thighs. Images of the body were obtained starting 69 minutes after injection of tracer. All reported SUVs are maximum SUVs, unless otherwise specified. COMPARISON: None DESCRIPTORS OF LESION FDG AVIDITY: Minimal: <= blood pool Mild: > blood pool and <= liver Moderate: > liver and <= 2x SUVmax liver Moderate to marked: >2x SUVmax liver and <= 3x SUVmax liver Marked: > 3x SUVmax liver FINDINGS: There is diffuse moderate uptake throughout the axial spine without focal uptake. Mixed sclerotic lytic lesion in the left iliac bone without FDG uptake may represent atypical bone cyst or fibroosseous lesion (image 227). Cervical lymphadenopathy in the right cervical 1 and 2 stations. For example a markedly FDG avid right level 2 cervical lymph node with max SUV of 8.3 measuring 1.5 x 2.4 cm on image 67. Physiologic and symmetric uptake within the vocal chords is noted. There is moderately FDG avid bilateral hilar, mediastinal, and internal mammary lymphadenopathy. For example a lymph node with max SUV 5.6 measuring approximately 1.2 cm in short axis on image 126. Mildly FDG avid groundglass in the left and right lower lobes are indeterminant but may be infectious or inflammatory in nature (image 142 and 152). The most FDG-avid lesion is right level 2 cervical lymph node, has a maximum SUV of 8.3, and approximate axial dimensions of 1.5 x 2.[address] findings: Dental restorations are noted. Mild aortic and coronary atherosclerosis. Colonic diverticulosis without diverticulitis. Degenerative changes of the spine. IMPRESSION: 1. Markedly FDG avid cervical lymphadenopathy consistent with biopsy proven carcinoma. Additional moderately FDG avid bilateral hilar, mediastinal, and internal mammary lymphadenopathy, which may be nonspecific. No PET evidence of primary tumor. 2. Mildly FDG avid groundglass in the left and right lower lobes are indeterminant but likely infectious or inflammatory in nature. Recommend follow up on CT chest in 3 months. Dictated by: Drew Mix M.D. The radiology attending physician has personally reviewed this study, and had reviewed and/or edited this written report and agrees with it. Electronically signed by: Robert Morrissey MD us Juhi Espinoza MD IMG PET PROCEDURES Final Result * SCAN - RADIOLOGY/IMAGING (06/20/2024) Anatomical Region Laterality Modality Other us Juhi Espinoza MD Edited Re sult - Final * (ABNORMAL) XR Knee Right 3 Views (06/14/2024 2:38 PM ABSTRACT MAKER) Anatomical Region Laterality Modality Lower Extremities, Knee Right Radiogra phic Imaging Impressions 06/14/2024 2:38 PM ABSTRACT MAKER IMPRESSION - Expected appearance of right total knee arthroplasty w/ no acute osseous abnl. Small right knee joint effusion. [address] [place] [address] Narrative 06/14/2024 2:38 PM ABSTRACT MAKER 06/14/2024 - x-ray right knee - right total knee arthroplasty which appears well seated in near-anatomic alignment. No fracture. No periprosthetic lucency to suggest loosening or infection. Small left knee joint effusion. Soft tissues otherwise unremarkable. us Heidy Brenner MD IMG XR PROCEDURES Final R esult * (ABNORMAL) US Head Neck Soft Tissue (06/14/2024 2:37 PM ABSTRACT MAKER) Anatomical Region Laterality Modality Head and Neck N/A Ultrasound Impressions 06/14/2024 2:37 PM ABSTRACT MAKER IMPRESSION - Enlarged 4.1 x 2.7 x 1.6 cm right jugular chain lymph node which could be reactive, metastatic, or due to lymphoma. Recommend ultrasound-guided core needle biopsy [address] [place] [address] Narrative 06/14/2024 2:37 PM ABSTRACT MAKER 06/14/2024 - US soft tissue neck - 4.1 x 2.7 x 1.6 cm hypoechoic enlarged lymph node located inferior to the parotid gland b/n the sternocleidomastoid muscle & the internal jugular vein. Asymmetric cortical thickening of the lymph node w/ eccentric positioning & thinning of the echogenic hilum. More caudal normal sized & appearing lymph node measuring 1.4 x 1.2 x 0.9 cm w/ central echogenic fatty hilum. Historical Provider IMG US PROCEDURES Final R esult * SCAN - RADIOLOGY/IMAGING (06/14/2024) Anatomical Region Laterality Modality Other Result [facility] Juhi Espinoza MD Edited Re sult - Final * Screening Mammogram Bilateral W [place] (05/15/2024 2:09 PM ABSTRACT MAKER) Anatomical Region Laterality Modality Breast Bilateral Mammography 05/15/2024 2:21 PM ABSTRACT MAKER Impressions 05/15/2024 2:21 PM ABSTRACT MAKER No evidence of malignancy in either breast. FINAL ASSESSMENT: BI-RADS Category 1: Negative. RECOMMENDATION: Recommend return for annual screening mammogram in 12 months. Electronically signed by: Ángel Miramontes II, D.O. Narrative 05/15/2024 2:21 PM ABSTRACT MAKER EXAMINATION: BILATERAL SCREENING MAMMOGRAM COMPARISON: All prior mammograms dating back to 2014. TECHNIQUE: Full-field 2D and digital breast tomosynthesis (DBT) images were obtained. CAD was utilized. BREAST PARENCHYMAL COMPOSITION: There are scattered areas of fibroglandular density. FINDINGS: There is no suspicious mass, calcification, or distortion in either breast. Benign-appearing microcalcifications bilaterally. Result [facility] Juhi Espinoza MD G MAMMO PROCEDURES [place] Result * (ABNORMAL) Colonoscopy (06/30/2022) Anatomical Region Laterality Modality Other Impressions 06/30/2022 06/30/2022 - colonoscopy - single small sessile polyp descending colon. Multiple medium-sized non-bleeding internal hemorrhoids. Multiple medium diverticula sigmoid colon Dr. Shmuel Mccracken Historical Provider ENDOSCOPY PROCEDURES Edit ed Result - Final * Hepatitis C antibody (04/21/2022 11:36 AM ABSTRACT MAKER) Hep C Ab Nonreactive Nonreactive [facility] Comment: Interpretive Data Nonreactive: Antibodies to HCV not detected. Does NOT exclude the possibility of recent exposure to HCV. Equivocal: Equivocal for HCV antibodies. Supplemental molecular testing will be automatically performed to determine infection status in accordance with current CDC screening recommendations. Reactive: Positive for HCV antibodies. This may represent current or past HCV infection. Supplemental molecular testing will be automatically performed to determine current infection status in accordance with current CDC screening recommendations. Interpretive data was last revised on 2019. Blood 04/21/2022 11:3 6 AM ABSTRACT MAKER 04/21/2022 4:24 PM ABSTRACT MAKER us Juhi Espinoza MD LAB MICROBIOLOGY - [facility] L ORDERABLES Final Result [facility] [address] Department [place] [address] * Dexa Axial Skeleton Bone Density 1 Or 2 Site (07/09/2021 12:38 PM CDT) Anatomical Region Laterality Modality Body N/A Other 07/09/2021 12:4 5 PM CDT Impressions 07/09/2021 12:45 PM CDT Bone mineral density of the spine and left hip falls within normal range. In comparison to previous examination there is increased bone mineral density of the spine and left hip. Electronically signed by: Alfreda Gale M.D. Narrative 07/09/2021 12:45 PM CDT Examination: Bone densitometry of the lumbar spine and the left hip Order Date: 07/09/2021 1:00 PM History: Osteoporosis screening. Postmenopausal Comparison: 05/13/2006 Findings: The bone densitometry of the L1-L4 region, the left femoral neck and the total left hip was calculated using dual-energy x-ray absorptiometry. Summary: Bone mineral density (BMD) of the lumbar spine (L1-4): T-score 0.2; 102% of normal Bone mineral density (BMD) of the total left hip: T-score 0.8; 111% of normal Bone mineral density (BMD) of the left femoral neck: T-score -0.3; 96% of normal Bone mineral density of the spine and left hip falls within normal range. In comparison to previous examination there is 7.1% change in spine findings and 9.1% change in left hip findings suggestive of increased bone mineral density. Procedure Note Alfreda Gale MD - 07/09/2021 Examination: Bone densitometry of the lumbar spine and the left hip Order Date: 07/09/2021 1:00 PM History: Osteoporosis screening. Postmenopausal Comparison: 05/13/2006 Findings: The bone densitometry of the L1-L4 region, the left femoral neck and the total left hip was calculated using dual-energy x-ray absorptiometry. Summary: Bone mineral density (BMD) of the lumbar spine (L1-4): T-score 0.2; 102% of normal Bone mineral density (BMD) of the total left hip: T-score 0.8; 111% of normal Bone mineral density (BMD) of the left femoral neck: T-score -0.3; 96% of normal Bone mineral density of the spine and left hip falls within normal range. In comparison to previous examination there is 7.1% change in spine findings and 9.1% change in left hip findings suggestive of increased bone mineral density. IMPRESSION: Bone mineral density of the spine and left hip falls within normal range. In comparison to previous examination there is increased bone mineral density of the spine and left hip. Electronically signed by: Alfreda Gale M.D. Juhi Espinoza MD IMG DXA PROCEDURES Final Result from Last 3 Months or Most Recently Relevant to Health Maintenance Additional Health Concerns Infection Onset Date Last Indicated COVID19 08/08/2024 08/08/2024 Insurance AETNA MEDICARE GOLD AETNA MEDICARE GOLD [facility] LIFE Advance Directives For more information, please contact: [phone] Documents on File Type Date Recorded Patient Medical Facilities Section Director Expl anation ADVANCE DIRECTIVE 08/17/2024 7:21 AM Power of Finisher [employer]chant [employer]-Medical * Full Code (Latest Code Status on File) Date Activated Date Inactivated Comments 08/17/2024 9:24 PM 08/19/2024 6:11 PM Care Teams Graphic Coordinator Relationship Specialty [place] [address] [address] PCP - General Family Medicine 12/19/19 Shmuel Mccracken MD [address] [place] [address] Referring Physician Gastroenterology 05/15/24 Magdiel Campbell MD [address] [facility] [address] [place] [address] Medical Oncologist/News Camera Operator Medical Oncology 07/10/24 Hilary Rousseau, RN Nurse Navigator 07/26/24 Jacqui Elizondo LCSW Tank Setter 07/26/24 Elier Quintero MD [address] [place] [address] Consulting Physician Otolaryngology 07/27/24 Damien Valles MD [address] [place] [address] Consulting Physician Radiation Oncology 08/08/24 Shahram Rosas MD [address] [facility] DEPT OTOLARYNGOLOGY, [facility] [address] [place] [address] Referring Physician Otolaryngology 08/08/24
--- OUTSIDE RECORDS SUMMARY | 2024-08-24 07:04 | XMS_ITS | Encounter Summary ---
Author Organization [facility] Healthcare Address [address] [place] [address] Care Team Providers Care Mold Maker Plastic Molds Name Role Phone Juhi Espinoza MD Primary Care Provider [phone] Shmuel Mccracken MD Unavailable [phone] Magdiel Campbell MD Unavailable Hilary Rousseau RN Unavailable UnavailJacqui PrakashW Unavailable Unavaila Elier Ferrari MD Unavailable [phone] Damien Valles MD Unavailable Shahram Rosas MD Unavailable Encounter Details Date Type Department Care Team (Late st Contact Info) Description 08/15/2024 Results Follow-Up Family Care at [facility] [address] [facility] [address] [place] [address] Horacio Goldberg, [place] [address] [facility] [address] [place] [address] Social History Tobacco Use Types Packs/Day Years Used Date Smoking Tobacco: Former Cigarettes 0.1 9 1 977 - 1986 Passive Smoke Exposure: Past Smokeless Tobacco: Never Comments:Quit>40 years ago Alcohol Use Standard Drinks/Week Comments Yes 0 (1 standard drink = 0.6 oz pur e alcohol) Occassionally [facility] Utilities Answer Date Recorded In the past 12 months has th e electric, gas, oil, or water company threatened [...] often do you attend chur ch or christian services? 1 to 4 times per year 07/28/2024 Do you belong to any clubs o r organizations such as restorationist groups, unions, fraternal or athletic groups, or [...] any time in the past 12 [facility], were you homeless or living in a chcf (including now)? No 07/28/2024 Personal Safety Answer Date Recorded Have you ever been in or are you currently in a harmful physical or emotional relationship or is someone making you feel afraid or unsafe? Denies 08/17/2024 Comments No Sex and Gender Information Value Date Recorded Sex Assigned at Not on file Legal Sex Female 11:24 PM POWDER PRESS OPERATOR Gender Identity Female 03/29/2020 5:42 PM POWDER PRESS OPERATOR Sexual Orientation Straight 03/29/2020 5: 42 PM POWDER PRESS OPERATOR documented as of this encounter Functional Status * Audit-C Score Answer Date of Assessment Author 0 08/17/2024 6:04 AM BRISEYDAT Suzan Lino RN * Question Answer Date of Assessment Author Q1: How often do you have a drink containing alcohol? Never 08/17/2024 6:04 AM BRISEYDAT Suzan Lino RN Q2: How many drinks containing alcohol do you have on a typical day when you are drinking? Patient does not drink 08/17/2024 6:04 AM BRISEYDAT Suzan Lino RN Q3: How often do you have six or more drinks on one occasion? Never 08/17/2024 6:04 AM Suzan Tony RN documented as of this encounter Miscellaneous Notes * Result Encounter Note - Marcie Chao MA - 08/16/2024 10:36 AM CDT Pt notified documented in this encounter Plan of Treatment Not on file documented as of this encounter Visit Diagnoses Not on filedocumented in this encounter Additional Health Concerns Infection Onset Date Last Indicated Resolved Time COVID19 08/08/2024 08/08/2024 documented as of this encounter Care Teams Mold Maker Plastic Molds Relationship Specialty Start [place] [address] [facility] [address] [place] [address] PCP - General Family Medicine 12/19/19 Shmuel Mccracken MD [address] [facility] [address] [place] [address] Referring Physician Gastroenterology 05/15/24 Magdiel Campbell MD [address] [facility] [address] [place] [address] Medical Oncologist/Carry In Worker Medical Oncology 07/10/24 Hilary Rousseau, RN Nurse Navigator 07/26/24 Jacqui Elizondo, CASH ANALYST Managed Care Coordinator 07/26/24 Elier Quintero MD [address] [place] [address] Consulting Physician Otolaryngology 07/27/24 Damien Valles MD [address] [place] [address] Consulting Physician Radiation Oncology 08/08/24 Shahram Rosas MD [address] [facility] DEPT OTOLARYNGOLOGY, [facility] [address] [place] [address] Referring Physician Otolaryngology 08/08/24 documented as of this encounter
--- OUTSIDE RECORDS SUMMARY | 2024-08-24 07:04 | XMS_ITS | Encounter Summary ---
Author Organization [facility] Healthcare Address [address] [place] [address] Care Team Providers Care Die Maintenance Technician Name Role Phone Juhi Espinoza MD Primary Care Provider [phone] Shmuel Mccracken MD Unavailable [phone] Magdiel Campbell MD Unavailable Hilary Rousseau RN Unavailable UnavailJacqui Prakash [facility] Unavailable Unavaila Elier Ferrari MD Unavailable [phone] Damien Valles MD Unavailable Shahram Rosas MD Unavailable [phone] Encounter Details Date Type Department Care Team (Late st Contact Info) Description 08/14/2024 Results Follow-Up [facility] [place] [address] [place] [address] Lynnette Coelho NP [address] [place] [address] [address] [place] [address] Social History Tobacco Use Types Packs/Day Years Used Date Smoking Tobacco: Former Cigarettes 0.1 9 1 977 - 1986 Passive Smoke Exposure: Past Smokeless Tobacco: Never Comments:Quit>40 years ago Alcohol Use Standard Drinks/Week Comments Yes 0 (1 standard drink = 0.6 oz pur e alcohol) Occassionally [facility] Utilities Answer Date Recorded In the [...] often do you attend chur ch or church services? 1 to 4 times per year 07/28/2024 Do you belong to any clubs o r organizations such as sabianism groups, unions, fraternal or athletic groups, or [...] any time in the past 12 m [facility], were you homeless or living in a care home (including now)? No 07/28/2024 Personal Safety Answer Date Recorded Have you ever been in or are you currently in a harmful physical or emotional relationship or is someone making you feel afraid or unsafe? Denies 08/17/2024 Comments No Sex and Gender Information Value Date Recorded Sex Assigned at Not on file Legal Sex Female 11:24 PM PAINT STRIPING MACHINE OPERATOR Gender Identity Female 03/29/2020 5:42 PM PAINT STRIPING MACHINE OPERATOR Sexual Orientation Straight 03/29/2020 5: 42 PM PAINT STRIPING MACHINE OPERATOR documented as of this encounter Functional Status * Audit-C Score Answer Date of Assessment Author 0 08/17/2024 6:04 AM Suzan Tony RN * Question Answer Date of Assessment Author Q1: How often do you have a drink containing alcohol? Never 08/17/2024 6:04 AM Suzan Tony RN Q2: How many drinks containing alcohol do you have on a typical day when you are drinking? Patient does not drink 08/17/2024 6:04 AM Suzan Tony RN Q3: How often do you have six or more drinks on one occasion? Never 08/17/2024 6:04 AM Suzan Tony RN documented as of this encounter Plan of Treatment Not on file documented as of this encounter Visit Diagnoses Not on filedocumented in this encounter Additional Health Concerns Infection Onset Date Last Indicated Resolved Time COVID19 08/08/2024 08/08/2024 documented as of this encounter Care Teams Die Maintenance Technician Relationship Specialty [place] [address] [facility] [address] [place] [address] PCP - General Family Medicine 12/19/19 Shmuel Mccracken MD [address] [facility] [address] [place] [address] Referring Physician Gastroenterology 05/15/24 OpMagdiel carson MD [address] [facility] [address] [place] [address] Medical Oncologist/Director Of Quality Improvement Medical Oncology 07/10/24 Hilary Rousseau, RN Nurse Navigator 07/26/24 Jacqui Elizondo, BUNDLE COLLECTOR Beef Cattle Farm Worker 07/26/24 Elier Quintero MD [address] [place] [address] Consulting Physician Otolaryngology 07/27/24 Damien Valles MD [address] [place] [address] Consulting Physician Radiation Oncology 08/08/24 Shahram Rosas MD [address] [facility] DEPT OTOLARYNGOLOGY, [facility] [address] [place] [address] Referring Physician Otolaryngology 08/08/24 documented as of this encounter
--- OUTSIDE RECORDS SUMMARY | 2024-08-24 07:04 | XMS_ITS | Encounter Summary ---
Author Organization [facility] Healthcare Address [address] [place] [address] Care Team Providers Care Manager Forensic Name Role Phone Ángel Bullard MD Primary Care Provider [phone] Juhi Espinoza MD Primary Care Provider [phone] Angelica Hartman MA Unavailable Shmuel Mccracken MD Unavailable [phone] Magdiel Campbell MD Unavailable Hilary Rousseau RN Unavailable UnavailJacqui PrakashW Unavailable Unavaila Elier Ferrari MD Unavailable [phone] Damien Valles MD Unavailable [phone] Shahram Rosas MD Unavailable [phone] Encounter Details Date Type Department Care Team (Late st Contact Info) Description 01/14/2017 Orders Only [facility] Information Management [address] [place] [address] Scanning, Provider Social History Tobacco Use Types Packs/Day Years Used Date Smoking Tobacco: Never Assessed Alcohol Use Standard Drinks/Week Comments No 0 (1 standard drink = 0.6 oz pur e alcohol) Comments Unknown Sex and Gender Information Value Date Recorded Sex Assigned at Not on file Legal Sex Female 11:24 PM SUSPECT ARTIST Gender Identity Female 03/29/2020 5:42 PM SUSPECT ARTIST Sexual Orientation Straight 03/29/2020 5: 42 PM SUSPECT ARTIST documented as of this encounter Plan of Treatment Not on file documented as of this encounter Procedures Procedure Name Priority Date/Time Associated Diagnosis Comments SCAN - RADIOLOGY/IMAGING 01/14/2017 documented in this encounter Results * SCAN - RADIOLOGY/IMAGING (01/14/2017) Anatomical Region Laterality Modality Other us Provider Scanning Final Result documented in this encounter Visit Diagnoses Not on filedocumented in this encounter Additional Health Concerns Infection Onset Date Last Indicated Resolved Time COVID: Suspected 11/14/2019 11/14/2019 11/15/2019 3:15 AM CDT COVID19 11/14/2019 11/14/2019 11/28/2019 3:06 AM CDT COVID: Suspected 08/08/2024 08/08/2024 08/08/2024 3:29 PM CDT COVID19 08/08/2024 08/08/2024 documented as of this encounter Care Teams Manager Forensic Relationship Specialty Start Date End Date Ángel Bullard MD PCP - General 09/07/12 12/18/19 [place] [address] [address] [facility] [address] [place] [address] PCP - General Family Medicine 12/19/19 Angeliac Hartman MA [address] [place] [address] [facility] [address] [place] [address] ACO Care Grooming Salon Manager 04/29/22 04/29/22 Shmuel Mccracken MD [address] [facility] [address] [place] [address] Referring Physician Gastroenterology 05/15/24 Magdiel Campbell MD [address] [facility] [address] [place] [address] Medical Oncologist/Cardiopulmonary Technologist Medical Oncology 07/10/24 Hilary Rousseau, RN Nurse Navigator 07/26/24 Jacqui Elizondo LCSW Environmental Law Professor 07/26/24 Elier Quintero MD [address] [place] [address] Consulting Physician Otolaryngology 07/27/24 Damien Valles MD [address] [place] [address] Consulting Physician Radiation Oncology 08/08/24 Shahram Rosas MD [address] [facility] DEPT OTOLARYNGOLOGY, [address] [address] Referring Physician Otolaryngology 08/08/24 documented as of this encounter
--- OUTSIDE RECORDS SUMMARY | 2024-08-24 07:04 | XMS_ITS | Encounter Summary ---
Author Organization [facility] Healthcare Address [address] [place] [address] Care Team Providers Care Supervisor Dog License Officer Name Role Phone Juhi Espinoza MD Primary Care Provider [phone] Shmuel Mccracken MD Unavailable [phone] Magdiel Campbell MD Unavailable [phone] Hilary Rousseau RN Unavailable UnavailJacqui PrakashW Unavailable Unavaila Elier Ferarri MD Unavailable [phone] Damien Valles MD Unavailable [phone] Shahram Rosas MD Unavailable [phone] Reason for Referral * Consultation (Routine) - Authorized Specialty Diagnoses / Procedures Referred By Contac t Referred To Contact Oncology Diagnoses Cervical lymphadenopathy Mediastinal lymphadenopathy Squamous cell [place] [address] [address] [place] [address] Phone: tel: fax: Magdiel Campbell MD [address] [facility], [address] [place] [address] Phone: tel: fax: Referral ID Status Reason Start Date Expiration Date Visits Requested Visits Authorized [id number] Authorized Specialty Services Required 07/07/2024 08/06/2025 99 99 Question Answer Please select the performing region: [facility] (All Locations) [167] Please select the performing department: [facility] ONC CHNW 101 [[phone]] Is this referral for Breast Health Multi-Disciplinary Clinic? No Does the patient have a diagnosis of a Head and Neck cancer? No # of visits: 99 Reason for Visit * Reason Onset Date Comments Test Results 07/07/2024 Encounter Details Date Type Department Care Team (Latest Contact Info) Description 07/07/2024 Results Follow-Up Family Care at [address] [address] [place] [id number] [place] [address] Cervical lymphadenopathy (Primary Dx); Pulmonary infiltrates; Acute cough; Mediastinal lymphadenopathy; Squamous cell carcinoma of unknown origin Social History Tobacco Use Types Packs/Day Years Used Date Smoking Tobacco: Former Cigarettes Q uit: 1985 Smokeless Tobacco: Never Comments:Quit>40 years ago Alcohol Use Standard Drinks/Week Comments Yes 0 (1 standard drink = 0.6 oz pur e alcohol) Occassionally PHQ-2 Answer Date Recorded PHQ-2 Total Score (If total score is 3 or more points, staff should administer the PHQ-9) 0 05/08/2024 Comments No Sex and Gender Information Value Date Recorded Sex Assigned at Not on file Legal Sex Female 11:24 PM CORRECTIONAL MEDICINE PHYSICIAN Gender Identity Female 03/29/2020 5:42 PM CORRECTIONAL MEDICINE PHYSICIAN Sexual Orientation Straight 03/29/2020 5: 42 PM CORRECTIONAL MEDICINE PHYSICIAN documented as of this encounter Ordered Prescriptions Prescription Sig Dispense Quantity Refills Last Filled Start Date End Date levoFLOXacin (LEVAQUIN) 750 mg tabletIndications: Pulmonary infiltrates,Acute cough Take 1 tablet (750 mg total) by mouth daily for 5 days 5 tablet 07/07/2024 07/12/2024 documented in this encounter Miscellaneous Notes * Result Encounter Note - Shelli Samuel MA - 07/07/2024 10:02 AM CDT demographics, recent office note, biopsy results, and PET-CT results faxed * Telephone Encounter - Juhi Espinoza MD - 07/07/2024 9:11 AM CDT Discussed results. She has had a cough & sore throat for ~ 7-10 days. Levafloxacin 750 mg dailyx 5 days sent to [facility] pharmacy. Also, no clear primary source of squamous carcinoma on PET-CT. Recommend Oncology referral. Orders Placed This Encounter Procedures Ambulatory referral to Oncology Standing Status: Future Expiration Date: 07/07/2025 Referral Priority: Routine Referral Type: Consultation Referral Reason: Specialty Services Required Referral Location: [facility] (All Locations) Requested Specialty: Oncology Number of Visits Requested: 99 Shelli - could you fax demographics, recent office note, biopsy results, and PET-CT results to [facility] Oncology? 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 07/06/2024 - PET-CT - Markedly FDG avid cervical lymphadenopathy consistent w/ biopsy proven carcinoma. Add'l moderately FDG avid bilateral hilar, mediastinal, & internal mammary lymphadenopathy,which may be nonspecific. No PET evidence of primary tumor. Mildly FDG avid ground glass in the left & right lower lobes indeterminate but likely infectious or inflammatory in nature. Recommend follow up on CT chest in 3 months. 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 07/06/2024 - PET-CT - Markedly FDG avid cervical lymphadenopathy consistent w/ biopsy proven carcinoma. Add'l moderately FDG avid bilateral hilar, mediastinal, & internal mammary lymphadenopathy,which may be nonspecific. No PET evidence of primary tumor. Mildly FDG avid ground glass in the left & right lower lobes indeterminate but likely infectious or inflammatory in nature. Recommend follow up on CT chest in 3 months. documented in this encounter Plan of Treatment Scheduled Referrals Name Type Priority Associated Diagnoses Order Schedule Ambulatory referral to Oncology Outpatient Referral Routine Cervical lymphadenopathy Mediastinal lymphadenopathy Squamous cell carcinoma of unknown origin 1 Occurrences starting 07/07/2024 until 07/07/2025 documented as of this encounter Visit Diagnoses Diagnosis Cervical lymphadenopathy- Primary Enlargement of lymph nodes Pulmonary infiltrates Pulmonary eosinophilia Acute cough Mediastinal lymphadenopathy Enlargement of lymph nodes Squamous cell carcinoma of unknown origin documented in this encounter Additional Health Concerns Infection Onset Date Last Indicated Resolved Time COVID: Suspected 08/08/2024 08/08/2024 08/08/2024 3:29 PM CDT COVID19 08/08/2024 08/08/2024 documented as of this encounter Care Teams Supervisor Dog License Officer Relationship Specialty Start [place] [address] [place] [address] PCP - General Family Medicine 12/19/19 Shmuel Mccracken MD [address] [place], [place] [address] Referring Physician Gastroenterology 05/15/24 Magdiel Campbell MD [address] [facility] [address] [place] [address] Medical Oncologist/Home Health Care Case Manager Medical Oncology 07/10/24 Hilary Rousseau, RN Nurse Navigator 07/26/24 Jacqui Elizondo LCSW Brick Extruder Operator 07/26/24 Elier Quintero MD [address] [place] [address] Consulting Physician Otolaryngology 07/27/24 Damien Valles MD [address] [place] [address] Consulting Physician Radiation Oncology 08/08/24 Shahram Rosas MD [address] [facility] DEPT OTOLARYNGOLOGY, [facility] [address] [place] [address] Referring Physician Otolaryngology 08/08/24 documented as of this encounter
--- OUTSIDE RECORDS SUMMARY | 2024-08-24 07:04 | XMS_ITS | Encounter Summary ---
Author Organization [facility] Healthcare Address [address] [place] [address] Care Team Providers Care Title I Teacher Name Role Phone Juhi Espinoza MD Primary Care Provider [phone] Shmuel Mccracken MD Unavailable [phone] Magdiel Campbell MD Unavailable [phone] Hilary Rousseau RN Unavailable UnavailJacqui Prakash [facility] Unavailable Unavaila Elier Ferrari MD Unavailable [phone] Damien Valles MD Unavailable Shahram Rosas MD Unavailable Reason for Visit * Reason Onset Date Comments Cough 07/31/2024 Encounter Details Date Type Department Care Team (Late st Contact Info) Description 08/07/2024 Nurse Triage Family Care at [facility] [address] [facility] [address] [place] [phone] [place] Espinoza [place] [id number] [place] [address] Acute cough (Primary Dx) Social History Tobacco Use Types Packs/Day Years Used Date Smoking Tobacco: Former Cigarettes Q uit: 1985 Smokeless Tobacco: Never Comments:Quit>40 years ago Alcohol Use Standard Drinks/Week Comments Yes 0 (1 standard drink = 0.6 oz pur e alcohol) Occassionally [facility] Utilities Answer Date Recorded In the past 12 months has e electric, gas, oil, or water company [...] often do you attend chur ch or mu-ism services? 1 to 4 times per year 07/28/2024 Do you belong to any clubs o r organizations such as adventist groups, unions, fraternal or athletic groups, or school groups? Yes 07/28/2024 How often do you attend meet ings of the clubs or organizations you belong to? More than 4 times per year 07/28/2024 Are you , , di vorced, , never , or living with a partner? 07/28/2024 AUDIT-C Answer Date Recorded Q1: How often do you have a drink containing alc ohol? Monthly or less 08/09/2024 Q2: How many drinks containi ng alcohol do you have on a typical day when you are drinking? 1 or 2 08/09/2024 Q3: How often do you have si x or more drinks on one occasion? Never 08/09/2024 Overall Financial Resource Strain (CARDIA) Answe r [...] any time in the past 12 m [facility], were you homeless or living in a nursing home (including now)? No 07/28/2024 Personal Safety Answer Date Recorded Have you ever been in or are you currently in a harmful physical or emotional relationship or is someone making you feel afraid or unsafe? Denies 08/09/2024 Comments No Sex and Gender Information Value Date Recorded Sex Assigned at Not on file Legal Sex Female 11:24 PM BLUEPRINT TRIMMER Gender Identity Female 03/29/2020 5:42 PM BLUEPRINT TRIMMER Sexual Orientation Straight 03/29/2020 5: 42 PM BLUEPRINT TRIMMER documented as of this encounter Functional Status * Audit-C Score Answer Date of Assessment Author 1 08/09/2024 8:10 AM CDT Ivan Car RN * Question Answer Date of Assessment Author Q1: How often do you have a drink containing alcohol? Monthly or less 08/09/2024 8:10 AM BRISEYDAT Sue Car RN Q2: How many drinks containing alcohol do you have on a typical day when you are drinking? 1 or 2 08/09/2024 8:10 AM BRISEYDAT Carmina Car RN Q3: How often do you have six or more drinks on one occasion? Never 08/09/2024 8:10 AM Sue Penalzoa RN documented as of this encounter Miscellaneous Notes * Telephone Encounter - Shelli Samuel MA - 08/08/2024 9:44 AM CDT Pt called back, appt scheduled * Telephone Encounter - Santa Dash - 08/08/2024 9:43 AM CDT Call Back Caller???s Concern: Patient returning call to office, warm transferred to be scheduled to come in today. Does message need to be routed? No Reason for Warm Transfer: Patient returning call from practice Practice Accepted the Warm Transfer? Yes Additional Comments If YES above, and no barriers. * Telephone Encounter - Shelli Samuel MA - 08/08/2024 9:38 AM CDT LM pt cell asking she call office, did not leave details. If pt calls back, Please see message below from Dr Espinoza: No sign of tuberculosis on Chest X-ray. Possibly new respiratory infection - viral most likely. Could she come for office visit today? * Telephone Encounter - Juhi Espinoza MD - 08/08/2024 9:34 AM CDT docusate sodium (COLACE) 100 mg capsule reconciled with outside records 08/08/2024 - CXR - Heart size & vascularity normal. Aortic arch well-defined on the left. Perihilar interstitial densities w/ a confluence appearance in the right infrahilar regions suggesting peribronchial inflammatory changes w/ developing atelectasis and/or infiltrative new from prior exam. No effusion or pneumothorax. Bony degenerative changes at shoulders & thoracic spine obscures the apices. No sign of tuberculosis on Chest X-ray. Possibly new respiratory infection - viral most likely. Could she come for office visit today? Please inform patient * Telephone Encounter - Shelli Samuel MA - 08/07/2024 1:23 PM CDT Faxed * Telephone Encounter - Juhi Espinoza MD - 08/07/2024 11:46 AM CDT Orders Placed This Encounter Procedures XR Chest Pa Lateral 2 Views Standing Status: Future Expiration Date: 08/07/2025 Scheduling Instructions: [facility] [place] [address] Where should this order be performed?: External Order [171] That is not an option in [facility]. Order printed for fax * Telephone Encounter - Shelli Samuel MA - 08/07/2024 11:19 AM CDT Pt would like to go to [facility] [place] [address] * Telephone Encounter - Juhi Espinoza MD - 08/07/2024 11:01 AM CDT 07/26/2024 - Chest CT - One or two 3 to 4 mm size nodules in each posterior lung base along w/ a small amt of linear scarring. Atherosclerotic changes in the aorta & coronary arteries w/ calcification. DDD thruout the thoracic spine No evidence of tuberculosis on recent Chest CT scan. Orders Placed This Encounter Procedures XR Chest Pa Lateral 2 Views Standing Status: Future Expiration Date: 08/07/2025 Where should this order be performed?: [facility] [144] If cough is new since her Chest CT scan July 26, can get Chest X-ray for further evaluation. Order placed for [facility]. Please let me know if she would like different location. * Telephone Encounter - Valerie Tony RN - 08/07/2024 8:22 AM CDT Reason for Disposition Wheezing is present Protocols used: Miyoy-Dcple-WX Pt is a 73 y/o female with a hx of HTN. 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 Pt is calling with a productive cough with yellow mucus and chest congestion. Denies coughing up any blood. Pt has been SOB and has been wheezing. Pt states she is having severe night sweats. Denies fever. Denies contact with anyone that has had a positive or pending Covid test that she is aware of. Pt is requesting a chest x-ray to r/o TB. Please contact pt at [phone]. Care advice given including Mucinex, cough medicine/cough drops, increased fluids and good hand washing. Pt verbalized understanding and janine call with worsening sx's. * Telephone Encounter - Valerie Tony RN - 08/07/2024 8:16 AM CDT Regarding: Shortness of breath, night sweats, cough, and sore throat drenched during the night. ----- Message from Ghassan Beckwith sent at 08/07/2024 8:13 AM CDT ----- Symptom Based Call Chief Complaint(s): Shortness of breath, night sweats, cough, and sore throat drenched during the night. Duration: Shortness of breath and night sweats started last night; cough and sore throat about a week. What type of symptom(s) is the patient experiencing? Red Flag. Is the patient concerned they are experiencing a medical emergency requiring an ambulance? No Additional Comments: Would like a chest Xray to test for TB. Does message need to be routed? Yes-Action Needed documented in this encounter Plan of Treatment Not on file documented as of this encounter Results * XR Chest Pa Lateral 2 Views (08/07/2024 12:21 PM CDT) Anatomical Region Laterality Modality Body, Chest N/A Digital Radiogra phy 08/08/2024 7:2 8 AM CDT Narrative 08/08/2024 7:29 AM CDT [...] signed by Wicho GARCIA T: Report ID: [id number] Reading Location: [place] [address] Procedure Note Wicho Bhardwaj MD - 08/08/2024 [...] signed by Wicho GARCIA T: Report ID: [id number] Reading Location: [place] [address] Juhi Espinoza MD IMG XR PROCEDURES Final R esult documented in this encounter Visit Diagnoses Diagnosis Acute cough- Primary Acute cough documented in this encounter Historical Medications * This list may reflect changes made after this encounter. docusate sodium (COLACE) 100 mg capsuleIndicatio ns:constipation Take 1 capsule (100 mg total) by mouth nightly as needed for constipation 05/19/2024 added in this encounter Additional Health Concerns Infection Onset Date Last Indicated Resolved Time COVID: Suspected 08/08/2024 08/08/2024 08/08/2024 3:29 PM CDT COVID19 08/08/2024 08/08/2024 documented as of this encounter Care Teams Title I Teacher Relationship Specialty [place] [address] [facility] [address] [place] [address] PCP - General Family Medicine 12/19/19 Shmuel Mccracken MD [address] [facility] [address] [place] [id number] Referring Physician Gastroenterology 05/15/24 Magdiel Campbell MD [address] [facility] [address] [place] [address] Medical Oncologist/Air Analysis Engineering Technician Medical Oncology 07/10/24 Hilary Rousseau, RN Nurse Navigator 07/26/24 Jacqui Elizondo LCSW Tile Roofer 07/26/24 Elier Quintero MD [address] [place] [address] Consulting Physician Otolaryngology 07/27/24 Damien Valles MD [address] [place] [address] Consulting Physician Radiation Oncology 08/08/24 Shahram Rosas MD [address] [facility] DEPT OTOLARYNGOLOGY, [address] [address] Referring Physician Otolaryngology 08/08/24 documented as of this encounter
--- OUTSIDE RECORDS SUMMARY | 2024-08-24 07:04 | XMS_ITS | Referral Summary ---
Author Organization [facility] Address [address] [place] [address] Phone Care Team Providers Care Retort Setter Name Role Phone Juhi Espinoza MD Primary Care Provider [phone] Shmuel Mccracken MD Unavailable [phone] Magdiel Campbell MD Unavailable [phone] Hilary Rousseau RN Unavailable UnavailJacqui PrakashW Unavailable Unavaila Elier Ferrari MD Unavailable [phone] Damien Valles MD Unavailable [phone] Shahram Rosas MD Unavailable [phone] Encounters Date Type Department Care Team Description 08/22/2024 3:00 PM CDT Clinical Support [facility] Department of Otolaryngology Head-Neck Division [address] Floor 5 [place] [address] 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) (Primary Dx) 08/22/2024 Telephone [facility] [address] 1st [place] [address] Jayna Clarke 08/21/2024 Telephone [facility] Head and Neck Tumor Center [address] 4th [place] [address] Hilary Rousseau, er tech Discharge Follow Up 08/17/2024 5:34 AM CDT - 08/19/2024 2:11 PM CDT Hospital Encounter [facility] 1 [place] [address] Elier Quintero MD 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) (Primary Dx); 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) Discharge Disposition: Discharge to home or self care 08/17/2024 7:30 AM CDT - 08/17/2024 12:25 PM CDT Surgery [facility] Operating Room 1 [place] [address] Elier Quintero MD PHARYNGECTOMY-ROBOTIC ASSISTED 08/17/2024 7:37 AM CDT Anesthesia Event [facility] Operating Room 1 [place] [address] Xavier Prince MD Dippolito, Jenny Irene, NP 08/15/2024 Results Follow-Up Family Care at [address] [phone] Horacio Goldberg NP 08/14/2024 3:00 PM CDT Ancillary Procedure [facility] Medical [facility] Imaging at [address] [address] Acute cough; COVID-19 08/14/2024 Results Follow-Up [facility] Convenient Care at [address] [address] Lynnette Coelho NP 08/14/2024 10:40 AM CDT Ancillary Procedure [facility] Imaging at [address] [address] Pain in left foot 08/14/2024 10:30 AM CDT Office Visit [facility] Convenient Care at [address] [phone] Lynnette Coelho NP Closed nondisplaced fracture of fifth metatarsal bone of left foot, initial encounter (Primary Dx) 08/10/2024 Telephone [facility] Head and Neck Tumor Center [address] [place] [phone] Tatum Roman, er tech pre-surgical check-in 08/09/2024 7:30 AM CDT Pre-Admission Testing [facility] Center for Preoperative Assessment and Planning [facility] Advanced [facility] ([facility]) [address] [place] [address] Preop examination (Primary Dx); Acquired hypothyroidism 08/08/2024 3:00 PM CDT Office Visit Family Care at [address] [address] Juhi Espinoza MD COVID-19 (Primary Dx); Community acquired pneumonia; 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); Acquired hypothyroidism; Elevated hematocrit; Prediabetes; Hypertension, essential; History of colon polyps; Class 1 obesity due to excess calories with serious comorbidity and body mass index (BMI) of 33.0 to 33.9 in adult 08/08/2024 Results Follow-Up Family Care at [address] [place] [phone] Juhi Espinoza MD 08/07/2024 12:15 PM CDT Ancillary Procedure [facility] Medical [facility] Imaging at [address] [phone] Acute cough 08/07/2024 Nurse Triage Family [facility] at [address] [place] [phone] Juhi Espinoza MD Acute cough (Primary Dx) 08/01/2024 Telephone [facility] [address] [place] [address] Brit Samson RN 08/01/2024 Telephone [facility] Oncology [address] Floor 5 [place] [phone] Santa Rodriguez RN 07/28/2024 Documentation [facility] Head and Neck Tumor Center [address] [place] [phone] Jacqui Elizondo, SEXUAL ASSAULT COUNSELLOR 07/28/2024 Documentation [facility] Head and Neck Tumor Center [address] [place] [phone] Jacqui Elizondo, SEXUAL ASSAULT COUNSELLOR 07/27/2024 Telephone [facility] Radiation Oncology [address] [place] [phone] Damien Valles MD 07/26/2024 Results Follow-Up [facility] Radiation Oncology [address] [place] [phone] Damien Valles MD 07/26/2024 Documentation [facility] Head and Neck Tumor Center [address] [place] [phone] Jacqui Elizondo, SEXUAL ASSAULT COUNSELLOR 07/26/2024 Telephone [facility] Head and Neck Tumor Center [address] [place] [phone] Hilary Rousseau, er tech Initial Call 07/26/2024 2:54 PM CDT - 07/26/2024 11:59 PM CDT Hospital Encounter [facility] Imaging and Radiology [address] [place] [address] 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) (Primary Dx); Cervical lymphadenopathy 07/14/2024 Orders Only [facility] [address] [address] Magdiel Campbell MD Cervical lymphadenopathy 07/13/2024 Orders Only [facility] Oncology [address] [place] [address] Floor 5 [place] [phone] Magdiel Campbell MD Cervical lymphadenopathy (Primary Dx) 07/13/2024 [facility] - [facility] ENT [address] [facility] Advanced [facility] 11th [place] [address] [place] [phone] Woodard MaribelMS leola 07/13/2024 2:15 PM CDT Office Visit [facility] Oncology [address] [place] [address] Floor 5 [place] [phone] Magdiel Campbell MD 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) (Primary Dx); Cervical lymphadenopathy; Mediastinal lymphadenopathy; Squamous cell carcinoma of unknown origin 07/07/2024 Results Follow-Up Family Care at [facility] [address] [place] [phone] Juhi Espinoza MD Cervical lymphadenopathy (Primary Dx); Pulmonary infiltrates; Acute cough; Mediastinal lymphadenopathy; Squamous cell carcinoma of unknown origin 07/06/2024 7:29 AM CDT - 07/06/2024 11:59 PM CDT Hospital Encounter [facility] Imaging and Radiology [address] [place], [place] [phone] Cervical lymphadenopathy; Metastatic carcinoma to lymph node with unknown primary site (HCC); 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, hematopoietic and related tissue (HCC) Discharge Disposition: Discharge to home or self care 06/23/2024 Telephone Family Care at [address] [phone] Juhi Espinoza MD Test Results 06/20/2024 Orders Only [facility] Health Information Management [address] [place] [address] Juhi Espinoza MD 06/19/2024 Telephone Family Care at [address] [address] Juhi Espinoza MD Test Results 06/14/2024 Orders Only [facility] Health Information Management [address] [place] [address] Juhi Espinoza MD 06/11/2024 Patient Message Family Care at [address] [address] Juhi Espinoza MD Cataract appointment/surgery from Last 3 Months Allergies No known active allergies Medications NIFEdipine [...] 025 Assessment & Plan (05/15/2024 11:44 AM MEDICAL BILL PROCESSOR): Handout given Cervical lymphadenopathy 05/15/2024 Assessment & Plan (05/15/2024 4:45 PM MEDICAL BILL PROCESSOR): 2 x 2 cm soft, non-tender, mobile [...] today Assessment & Plan (05/15/2024 4:44 PM MEDICAL BILL PROCESSOR): 01/2023 - H/H 15.6/50.6 (H) Mildly elevated. Former smoker, quit in distant past. Possibly assoc with undiagnosed RISSA. Recheck today Immunization due 04/21/2022 Assessment & Plan (05/15/2024 4:42 PM MEDICAL BILL PROCESSOR): Shingrix #2 Discussed Shingrix avail at local pharmacy Assessment & Plan (04/21/2023 8:42 PM MEDICAL BILL PROCESSOR): Influenza, Covid-19, Shingrix #2 Discussed Covid-19 and Shingrix avail at local pharmacy Could wait until 3 month following Covid-19 diagnosis for Covid-19 vaccine Assessment & Plan (04/21/2022 10:56 AM MEDICAL BILL PROCESSOR): Influenza, Covid-19 booster, Shingrix Discussed Covid-19 and Shingrix avail at local pharmacy Hearing loss 04/21/2022 Assessment & Plan (05/15/2024 11:39 AM MEDICAL BILL PROCESSOR): Hearing aids expensive and were never comfortable for her. Assessment & Plan (04/21/2023 8:41 PM MEDICAL BILL PROCESSOR): Hearing aids expensive and not very useful to patient. Assessment & Plan (04/21/2022 4:39 PM MEDICAL BILL PROCESSOR): Hearing aids expensive and not very useful to patient. Prediabetes 04/21/2022 Assessment & Plan (08/08/2024 12:54 PM CDT): 04/2022 - HgbA1c 6.0 01/2023 - HgbA1c 5.7 04/2024 - HgbA1c 5.7 Diet control Assessment & Plan (05/14/2024 8:02 PM MEDICAL BILL PROCESSOR): 04/2022 - HgbA1c 6.0 01/2023 - HgbA1c 5.7 Diet control Assessment & Plan (04/21/2023 8:44 PM MEDICAL BILL PROCESSOR): 04/2022 - HgbA1c 6.0 01/2023 - HgbA1c 5.7 Diet control Assessment & Plan (05/05/2022 3:16 PM MEDICAL BILL PROCESSOR): 04/21/2022 - HgbA1c 6.0 Annual physical exam 04/15/2021 Assessment & Plan (05/15/2024 4:41 PM MEDICAL BILL PROCESSOR): 01/2023 - Cr 0.90, eGFR 68 Total 268; Trig 247; HDL 70; LDL 149 HgbA1c 5.7 TSH 0.78 25(OH) Vit D 32 H/H 15.6/50.6 Urine microalb negative Assessment & Plan (04/21/2023 8:44 PM MEDICAL BILL PROCESSOR): 01/2023 - Cr 0.90, eGFR 68 Total 268; Trig 247; HDL 70; LDL 149 HgbA1c 5.7 TSH 0.78 25(OH) Vit D 32 H/H 15.6/50.6 Urine microalb negative Assessment & Plan (04/21/2022 6:14 AM MEDICAL BILL PROCESSOR): 03/2020 - 25(OH) Vit D 42 03/2021 - H/H 15.9/50.7 Glucose 120 Assessment & Plan (04/15/2021 11:36 AM MEDICAL BILL PROCESSOR): 03/2020 - Total 216; Trig 41; HDL 109; HDL 99 Has donated blood within the last 3 years, so would have been screened for Hepatitis C 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 Screening for condition 04/15/2021 Assessment & Plan (05/15/2024 4:41 PM MEDICAL BILL PROCESSOR): Patient screened for future fall risk; documentation of no falls in the past year or only 1 fall without injury in the past year Assessment & Plan (04/22/2023 9:06 AM MEDICAL BILL PROCESSOR): Patient screened for future fall risk; documentation of no falls in the past year or only 1 fall without injury in the past year Assessment & Plan (04/21/2022 11:11 AM MEDICAL BILL PROCESSOR): Patient screened for future fall risk; documentation of no falls in the past year or only 1 fall without injury in the past year Assessment & Plan (04/15/2021 12:36 PM MEDICAL BILL PROCESSOR): Patient screened for future fall risk; documentation of no falls in the past year or only 1 fall without injury in the past year Trochanteric bursitis of left hip 05/09/2020 Assessment & Plan (05/09/2020 4:32 PM MEDICAL BILL PROCESSOR): Recommend ice OR heat to affected area. 20 minutes at a time, 2-3 times a day. Home exercises [email or web address]-encyclopedia/[email or web address] [email or web address] [email or web address]-[email or web address] Refill muscle relaxer as this has helped. [...] Mccracken Assessment & Plan (06/23/2024 3:03 PM MEDICAL BILL PROCESSOR): 11/2014 - c-scope - One 4 mm polyp in the cecum; One 3 mm polyp transverse colon; Internal hemorrhoids. Pathology - tubular adenoma; focal hyperplastic change, benign lymphoid aggregate 06/2022 - colonoscopy - single small sessile polyp descending colon. Multiple medium-sized non-bleeding internal hemorrhoids. Multiple medium diverticula sigmoid colon Dr. Shmuel Mccracken Assessment & Plan (05/15/2024 4:42 PM MEDICAL BILL PROCESSOR): 11/2014 - c-scope - One 4 mm polyp in the cecum; One 3 mm polyp transverse colon; Internal hemorrhoids. Pathology - tubular adenoma; focal hyperplastic change, benign lymphoid aggregate 06/2022 - colonoscopy - single small sessile polyp descending colon. Multiple medium-sized non-bleeding internal hemorrhoids. Multiple medium diverticula sigmoid colon Dr. Shmuel Mccracken Assessment & Plan (04/21/2023 8:39 PM MEDICAL BILL PROCESSOR): 11/2014 - c-scope - One 4 mm polyp in the cecum; One 3 mm polyp transverse colon; Internal hemorrhoids. Pathology - tubular adenoma; focal hyperplastic change, benign lymphoid aggregate 06/2022 - colonoscopy - single small sessile polyp descending colon. Multiple medium-sized non-bleeding internal hemorrhoids. Multiple medium diverticula sigmoid colon Dr. Shmuel Mccracken Assessment & Plan (04/21/2022 11:07 AM MEDICAL BILL PROCESSOR): 11/2014 - c-scope - One 4 mm polyp in the cecum; One 3 mm polyp transverse colon; Internal hemorrhoids. Pathology - tubular adenoma; focal hyperplastic change, benign lymphoid aggregate Referred to GI Mar 2021 for repeat screening. Never scheduled. [facility] would be more convenient for her than Referral placed Dr. Shmuel Mccracken [address] [place], [address] Assessment & Plan (04/15/2021 7:24 AM MEDICAL BILL PROCESSOR): 11/2014 - c-scope - One 4 mm polyp in the cecum;One 3 mm polyp in the transverse colon;Internal hemorrhoids. Pathology - tubular adenoma; focal hyperplastic change, benign lymphoid aggregate Assessment & Plan (04/02/2020 10:00 AM MEDICAL BILL PROCESSOR): 11/2014 - c-scope - One 4 mm [...] current Assessment & Plan (05/15/2024 4:42 PM MEDICAL BILL PROCESSOR): 04/2022 - Cr 0.85, eGFR 73 Urine [...] 140/90 Assessment & Plan (04/21/2023 8:43 PM MEDICAL BILL PROCESSOR): 04/2022 - Cr 0.85, eGFR 73 Urine [...] daily Assessment & Plan (05/05/2022 3:24 PM MEDICAL BILL PROCESSOR): 04/21/2022 - Cr 0.85, eGFR 73 Urine microalb negative Total 208; Trig 151; HDL 62; LDL 116 Losartan 100 mg seemed to make blood pressure worse rather than better Doing much better back on the nifedipine 60 mg daily Taking magnesium to help with the muscle cramps Encouraged continued exercise Cont current Assessment & Plan (04/21/2022 11:08 AM MEDICAL BILL PROCESSOR): 03/2021 - Cr 0.96, eGFR 63 Nifedipine [...] something new. Will try [facility] handout provided https://www.aafp.org/afp/[email or web address]-[email or web address].pdf Assessment & Plan (04/15/2021 11:36 AM MEDICAL BILL PROCESSOR): 03/2020 - Cr 0.68, eGFR 89 Nifedipine 60 mg daily BP well controlled Goal BP < 140/90 Cont current Assessment & Plan (05/09/2020 4:33 PM MEDICAL BILL PROCESSOR): Controlled at last office visit (126/58) Compliant with nifedipine 60 mg daily based on refill requests Recheck at followup Assessment & Plan (04/02/2020 12:37 PM MEDICAL BILL PROCESSOR): Well controlled Cont current Labs today Release [...] . Assessment & Plan (05/15/2024 11:21 AM MEDICAL BILL PROCESSOR): Wt Readings from Last 3 Encounters: 05/15/24 107.5 kg (237 lb) 04/22/23 110.7 kg (244 lb) 05/05/22 114.3 kg (252 lb) 04/21/22 - 254 lbs 03/2021 - 275 lbs 04/2020 - 222 lbs 03/2020 213 lbs 7 lbs weight loss over last 12 months discussed healthy diet, exercise and adequate sleep Body mass index is 38.27 kg/m . Comorbidity - HTN Assessment & Plan (04/22/2023 9:09 AM MEDICAL BILL PROCESSOR): Wt Readings from Last 3 Encounters: 04/22/23 110.7 kg (244 lb) 05/05/22 114.3 kg (252 lb) 04/21/22 115.2 kg (254 lb) 03/2021 - 275 lbs 04/2020 - 222 lbs 03/2020 - 213 lbs 10 lbs weight loss over last 12 months discussed healthy diet, exercise and adequate sleep Body mass index is 39.4 kg/m . Comorbidity - HTN Assessment & Plan (05/05/2022 3:17 PM MEDICAL BILL PROCESSOR): Wt Readings from Last 3 Encounters: 05/05/22 114.3 kg (252 lb) 04/21/22 115.2 kg (254 lb) 04/15/21 124.7 kg (275 lb) 04/2020 - 222 lbs 03/2020 213 lbs discussed healthy diet, exercise and adequate sleep Body mass index is 40.69 kg/m . Assessment & Plan (04/21/2022 10:49 AM MEDICAL BILL PROCESSOR): Wt Readings from Last 3 Encounters: 04/21/22 115.2 kg (254 lb) 04/15/21 124.7 kg (275 lb) 05/09/20 100.7 kg (222 lb) 03/2020 - 213 lbs discussed healthy diet, exercise and adequate sleep Body mass index is 41.02 kg/m . Assessment & Plan (04/15/2021 11:36 AM MEDICAL BILL PROCESSOR): Wt Readings from Last 3 Encounters: 04/15/21 [...] enjoyable Assessment & Plan (05/09/2020 4:30 PM MEDICAL BILL PROCESSOR): discussed healthy diet, exercise and adequate sleep Body mass index is 35.83 kg/m . Comorbidity - HTN Assessment & Plan (04/02/2020 12:36 PM MEDICAL BILL PROCESSOR): discussed healthy diet, exercise and adequate sleep [...] (L) Assessment & Plan (05/14/2024 8:03 PM MEDICAL BILL PROCESSOR): 03/2020 - TSH 4.32 (H) Levothyroxine 137 mcg daily increased to 150 mcg daily 03/2021 - TSH 0.14 (L); fT4 1.78 (H) Levothyroxine decreased to 75 mcg one day a week, 150 mg 6 days a week 04/2022 - TSH 0.49 01/2023 - TSH 0.78 Assessment & Plan (04/21/2023 8:44 PM MEDICAL BILL PROCESSOR): 03/2020 - TSH 4.32 (H) Levothyroxine 137 mcg daily increased to 150 mcg daily 03/2021 - TSH 0.14 (L); fT4 1.78 (H) Levothyroxine decreased to 75 mcg one day a week, 150 mg 6 days a week 04/2022 - TSH 0.49 01/2023 - TSH 0.78 Assessment & Plan (05/05/2022 3:16 PM MEDICAL BILL PROCESSOR): 03/2020 - TSH 4.32 (H) Levothyroxine 137 mcg daily increased to 150 mcg daily 03/2021 - TSH 0.14 (L); fT4 1.78 (H) Levothyroxine decreased to 75 mcg one day a week, 150 mg 6 days a week 04/21/2022 - TSH 0.49 Assessment & Plan (04/21/2022 6:11 AM MEDICAL BILL PROCESSOR): 03/2020 - TSH 4.32 (H) Levothyroxine 137 mcg daily increased to 150 mcg daily 03/2021 - TSH 0.14 (L); fT4 1.78 (H) Levothyroxine decreased to 75 mcg one day a week, 150 mg 6 days a week Assessment & Plan (04/15/2021 7:23 AM MEDICAL BILL PROCESSOR): 03/2020 - TSH 4.32 (H) Levothyroxine 137 mcg daily increased to 150 mcg daily Assessment & Plan (04/02/2020 12:39 PM MEDICAL BILL PROCESSOR): Labs today Recurrent major depressive disorder, in full rem ission 04/02/2020 Assessment & Plan (05/14/2024 8:03 PM MEDICAL BILL PROCESSOR): Patient stopped her SSRI (fluoxetine 20 mg) in 2020, and is doing well Assessment & Plan (04/21/2023 8:40 PM MEDICAL BILL PROCESSOR): Patient stopped her SSRI (fluoxetine 20 mg) in 2020, and is doing well Assessment & Plan (04/21/2022 6:12 AM MEDICAL BILL PROCESSOR): Patient stopped her SSRI (fluoxetine 20 mg) in 2020, and is doing well Assessment & Plan (04/15/2021 11:33 AM MEDICAL BILL PROCESSOR): Patient has stopped her SSRI (fluoxetine 20 mg), and is doing well Assessment & Plan (05/09/2020 4:30 PM MEDICAL BILL PROCESSOR): Doing well on SSRI Assessment & Plan (04/02/2020 12:39 PM MEDICAL BILL PROCESSOR): OK to space SSRI to every OTHER day I am not aware of any DNA testing that is available outside of research studies for assessment of depression and help with choosing medical therapy Monitor symptoms on every OTHER day medicine Resolved Problems Problem Noted Date Diagnosed Date Resolved Date COVID-19 04/07/2023 04/21/2023 Mixed hyperlipidemia 04/16/2021 024 Assessment & Plan (04/27/2022 12:33 PM MEDICAL BILL PROCESSOR): 04/21/2022 - Total 208; Trig 151; HDL 62; LDL 116 Assessment & Plan (04/21/2022 6:10 AM MEDICAL BILL PROCESSOR): 03/2021 - total 234; Trig 190; HDL 63; LDL 133 Immunizations Immunization Administration Dates Next Due Influenza, Quad, Adjuvantate d, Intramuscular 02/20/2021 Influenza, Quadrivalent, Hig h Dose, Preservative Free, Intrr 04/21/2022,04/02/2020 Influenza, Quadrivalent, Spl it, Preservative Free, Intramuscular 04/22/2023 Influenza, Trivalent, High D ose, Split, Preservative Free, Intramuscular 03/28/2024,02/11/2018,04/23/2016 Pfizer SARS-CoV-2 Monovalent Vaccination (12+ Yrs) PURPLE 03/31/2021,07/01/2020,06/03/2020 Pneumococcal Conjugate PCV 13 04/23/2016 Pneumococcal Polysaccharide PPV23 04/15/2021 ZOSTER Recombinant 11/10/2022 Social History Tobacco Use Types Packs/Day Years Used Date Smoking Tobacco: Former Cigarettes 0.1 9 1 977 - 1986 Passive Smoke Exposure: Past Smokeless Tobacco: Never Tobacco Cessation:Counseling Given: Not Answered Comments:Quit>40 years ago Alcohol Use Standard Drinks/Week Comments Yes 0 (1 standard drink = 0.6 oz pur e alcohol) Occassionally [facility] Utilities Answer Date Recorded In the past 12 months has e Nov[employer], gas, oil, or water [employer] threatened to shut off services in your [...] often do you attend chur ch or buddhism services? 1 to 4 times per year 07/28/2024 Do you belong to any clubs o r organizations such as jainism groups, unions, fraternal or athletic groups, or [...] any time in the past 12 [facility], were you homeless or living in a custodial (including now)? No 07/28/2024 Personal Safety Answer Date Recorded Have you ever been in or are you currently in a harmful physical or emotional relationship or is someone making you feel afraid or unsafe? Denies 08/17/2024 Comments No Sex and Gender Information Value Date Recorded Sex Assigned at Not on file Legal Sex Female 11:24 PM MEDICAL BILL PROCESSOR Gender Identity Female 03/29/2020 5:42 PM MEDICAL BILL PROCESSOR Sexual Orientation Straight 03/29/2020 5: 42 PM MEDICAL BILL PROCESSOR Last Filed Vital Signs Vital Sign Reading [...] 08/17/2024 9:25 PM CDT Plan of Treatment Not on file Procedures Procedure Name Priority Date/Time Associated Diagnosis [...] of head and neck (HCC) Case Notes 04/29@1757- Per Criss via chat okay to add [...] Read Routine (OP Routine) 06/14/2024 2:38 PM MEDICAL BILL PROCESSOR US SOFT TISSUE HEAD NECK Schedule Routine, Read Routine (OP Routine) 06/14/2024 2:37 PM MEDICAL BILL PROCESSOR SCAN - RADIOLOGY/IMAGING 06/14/2024 SCREENING MAMMOGRAM BILATERAL W VICENTE Schedule Routine, Read Routine (OP Routine) 05/15/2024 2:09 PM MEDICAL BILL PROCESSOR Screening mammogram, encounter for COLONOSCOPY Routine 06/30/2022 HEPATITIS C ANTIBODY Routine 04/21/2022 11:36 AM MEDICAL BILL PROCESSOR Annual physical exam Screening for viral disease [...] LAB BLOOD ORDERABLES F inal Result [facility] [address] [facility] Department [place] [address] * Basic metabolic panel (08/18/2024 1:10 AM CDT) Sodium 139 135 - 145 mmol/L Potassium, pl 4.4 3.3 - 4.9 mmol/L [facility] Chloride 101 97 - 110 mmol/L [facility] CO2 26 22 - 32 mmol/L [facility] Anion gap 12 2 - 15 mmol/L [facility] BUN 14 6 - 25 mg/dL [facility] Creatinine 0.84 0.60 - 1.10 mg/dL [facility] Glucose 112 70 - 199 mg/dL [facility] Comment: Interpretive Data Fasting glucose [...] 2022. Calcium 9.3 8.5 - 10.3 mg/dL [facility] Blood 08/18/2024 1:10 AM CDT 08/18/2024 2:51 AM CDT Elier Quintero MD LAB BLOOD ORDERABLES F inal Result [facility] [address] [facility] [address] Department [place] [address] * XR Abdomen Ap 1 Vw (08/17/2024 [...] tape and tegaderm Number of attempts: 1 Xavier Prince MD ANESTHESIA ORDERABLES Final Resu [...] patient tolerated procedure well with no complications Xavier Prince MD ANESTHESIA ORDERABLES Final Resu lt * Check Sample (08/17/2024 7:20 AM CDT) ABO Rh O Positive [facility] HCLL OTHER 08/17/2024 7:20 AM CDT 08/17/2024 7:31 AM CDT Elier Quintero MD LAB BLOOD ORDERABLES F inal Result [facility] [address] [facility] [address] [place] [address] [facility] * XR Chest Pa Lateral 2 Views (08/14/2024 2:37 PM CDT) Anatomical Region Laterality Modality Body, Chest N/A Digital Radiogra phy 08/14/2024 8:08 PM CDT Narrative 08/14/2024 8:09 PM CDT EXAM DESCRIPTION: XR CHEST PA LATERAL 2 VIEWS REASON FOR STUDY: cough Follow up 4..25 COVID + and pneumonia per patient. Pt [...] Abraham Dinh M.D. RW T: Report ID: [id number] Reading Location: [id number] Procedure Note Abraham Dinh MD - 08/14/2024 EXAM DESCRIPTION: XR CHEST PA LATERAL 2 VIEWS REASON FOR STUDY: cough Follow up 4.. COVID + and pneumonia per patient. Pt [...] Abraham Dinh M.D. RW T: Report ID: [id number] Reading Location: [id number] us Juhi Espinoza MD IMG XR PROCEDURES [...] 12:19 PM - Electronically signed by Giuseppe Rosario M.D. AR T: Report ID: [id number] Reading Location: [id number] Procedure Note Giuseppe Rosario MD - 08/14/2024 [...] 12:19 PM - Electronically signed by Giuseppe Rosario M.D. AR T: Report ID: [id number] Reading Location: [id number] Lynnette Coelho NP IMG XR PROCEDURES Final Re sult * TYPE AND SCREEN 14 DAY (08/09/2024 9:03 AM CDT) Norma, indirect Negative ABO Rh O Positive [facility] Blood 08/09/2024 9:03 AM CDT 08/09/2024 9:31 AM CDT Narrative [facility] - 08/09/2024 10:36 AM CDT Is this test being ordered in advance for a procedure?->Yes Expected date of procedure:->08/11/24 Has the patient been transfused in the past 3 months?->No Has the patient been in the past 3 months?->No Meagan Nielsen NP LAB BLOOD BANK TEST ORD ERABLES Final Result Performing Organization Address [facility] de Phone Number [facility] Department [place] [address] * (ABNORMAL) eGFR (08/09/2024 9:03 AM CDT) eGFR 41(L) >=60 mL/min/1. 73 m2 Comment: [...] CDT 08/09/2024 9:20 AM CDT Meagan Nielsen NP LAB BLOOD ORDERABLES Fi nal Result Performing Organization Address [facility] Co de Phone Number [facility] Department [place] [address] * (ABNORMAL) CBC without differential (08/09/2024 9:03 AM CDT) WBC 8.14 3.80 - 9.90 K/cumm Hgb 15.1 11.9 - 15.5 g/dL [facility] Hct 45.7(H) 35.6 - 45.5 % [facility] Plt 316 150 - 400 K/cumm [facility] MPV 9.6 9.1 - 12.3 fL [facility] RBC 5.19 3.90 - 5.20 M/cumm [facility] MCV 88.1 81.3 - 96.4 fL [facility] MCH 29.1 27.1 - 33.3 pg [facility] MCHC 33.0 32.3 - 35.7 g/dL [facility] RDW CV 14.3 11.1 - 14.9 % [facility] RDW SD 45.8 35.7 - 48.1 fL [facility] NRBC abs 0.00 0.00 - 0.01 K/cumm [facility] Blood 08/09/2024 9:03 AM CDT 08/09/2024 9:20 AM CDT us Meagan Nielsen PIT RECORDER LAB BLOOD ORDERABLES Fi nal Result [facility] [place] [address] * TSH (08/09/2024 9:03 AM CDT) Pathologist [facility] [place] Thyroid Stimulating Hormone 0.90 0.30 - 4.20 mcIUnit/mL Blood 08/09/2024 9:03 AM CDT 08/09/2024 9:20 AM CDT us Horacio Goldberg PIT RECORDER LAB BLOOD ORDERABLES Fin al Result [facility] Department [place] [address] * (ABNORMAL) Basic metabolic panel (08/09/2024 9:03 AM CDT) Sodium 138 135 - 145 mmol/L Potassium, pl 4.0 3.3 - 4.9 mmol/L [facility] Chloride 99 97 - 110 mmol/L [facility] CO2 28 22 - 32 mmol/L [facility] Anion gap 11 2 - 15 mmol/L [facility] BUN 28(H) 6 - 25 mg/dL [facility] Creatinine 1.35(H) 0.60 - 1.10 mg/dL [facility] Glucose 115 70 - 199 mg/dL [facility] Comment: Interpretive Data Fasting glucose [...] 2022. Calcium 9.3 8.5 - 10.3 mg/dL [facility] Blood 08/09/2024 9:03 AM CDT 08/09/2024 9:20 AM CDT us Meagan Nielsen PIT RECORDER LAB BLOOD ORDERABLES Fi nal Result [facility] [address] [facility] [address] [place] [address] * (ABNORMAL) POC Influenza A/B, COVID-19 antigen (08/08/2024 3:29 PM CDT) Pathologist [facility] [place] Influenza A Ag, POC Negative Negative [facility] Influenza B Ag, POC Negative Negative [facility] COVID-19 Ag POC Positive(A) Presumptive Negative, Invalid [facility] Nasopharyngeal 08/08/2024 3: 29 PM CDT us Juhi Espinoza MD POINT OF CARE TEST ORDERA BLES Final Result [facility] [address] [facility] [address] [place] [address] * XR Chest Pa Lateral 2 Views [...] 7:29 AM - Electronically signed by Wicho Bhardwaj M.D. RB T: Report ID: [id number] Reading Location: [id number] Procedure Note Wicho Bhardwaj MD - 08/08/2024 [...] 7:29 AM - Electronically signed by Wicho Bhardwaj M.D. RB T: Report ID: [id number] Reading Location: [id number] us Juhi Espinoza MD IMG XR PROCEDURES [...] by: Hemant Ocasio M.D. Damien Valles MD IM CT PROCEDURES Final Result * Surgical pathology (07/14/2024 7:52 AM CDT) Tissue specimen (specimen) (Miscellaneous) 07/14/2024 7:52 AM CDT 07/14/2024 7:52 AM CDT Narrative [facility] - 07/20/2024 4:58 PM CDT EPIC results best viewed via link to PDF [facility] Pathology Consult Service Michael [address], [place] [address] Note to Patients: This report may contain [...] SURGICAL PATHOLOGY REPORT * Consult Report * [facility] is providing an additional review of previously collected tissue. FINAL WITH ADDENDUM Patient Name: MARLEN CHOI Address: [address] [place] [id number] Gender: F : 1950 (Age: 73) [facility] #: [id number] Patient Type: [facility] Location: UNKNOWN Taken: 07/14/2024 Received: 07/14/2024 Accessioned: 07/18/2024 Reported: 07/20/2024 Physician(s): Magdiel Campbell, [facility] Department of Pathology [address] [place] [address] P: [phone] F: [phone] Histology: [phone] Diagnosis: Consult material received from [place], [place] (OSC: [id number]; 06/20/2024). Right cervical lymph node, biopsy: - [...] Received for review are sixteen slides labeled [id number], accompanied by a corresponding pathology report. The material originates from [place], [place]. Selected slide(s) may be digitally scanned for our files, and all materials are returned to the referring institution, along with a copy of our final report. Addenda/Procedures Addendum Ordered: 07/27/2024 Status: Signed Out Addendum Complete: 07/27/2024y: Jayna Devine MD, PhDAddendum Signed Out: 07/27/2024 Addendum Comment Additionally received fifteen unstained slides labeled [id number] for additional materials on [id number]. The material originates from [place], [place]. By this signature, I attest that the above diagnosis is based upon my personal examination of the slides(and/or other material indicated in the diagnosis). Jayna Devine MD, PhDReport Electronically Reviewed and Signed Out By Jayna Devine MD, PhD 07/27/2024 11:20:49 Addendum Ordered: 07/28/2024 Status: Signed Out Addendum Complete: 07/28/2024y: Jayna Devine MD, PhDAddendum Signed Out: 07/28/2024 Addendum Diagnosis - p93-[id number] squamous cell carcinoma Addendum Comment As performed and interpreted at [facility], a p16 immunostain shows strong and diffuse [...] see below for HPV testing performed by [employer] and reported on 08/06/2024. By this signature, I attest that the above diagnosis is based upon my personal examination of the slides(and/or other material indicated in the diagnosis). Jayna Devine MD, PhDReport Electronically Reviewed and Signed Out By Jayna Devine MD, PhD 08/07/2024 09:15:44 The HPV High Risk test was performed by [facility], [address] [place] [id number]. Any testing required for diagnostic purposes was performed in the Department of Pathology and Immunology at [facility], [address] [place] [id number] CLIA # [id number] The performance characteristics of the testing cited in this report (if any) were determined by the [facility] Department of Pathology and Immunology [facility], as part of an ongoing supplier quality program and in compliance with federally [...] and the performance characteristics determined by the [facility], [facility] Department of Pathology and Immunology. It has not been cleared or approved by the U.S. Food and Drug Administration. Any test designated as LDT was developed and its performance characteristics determined by [facility]. It has not been cleared or approved by the FDA. This test is used for clinical purposes and should not be regarded as investigational or for research. Report images and/or scanned reports, if included, only viewable in PDF version of report. us Magdiel Campbell MD LAB PATHOLOGY ORDERABLES Fi nal Result [facility] [address] [facility] [address] [place] [address] * PET/CT FDG Skull to Thigh (07/06/2024 [...] FDG-PET/CT IMAGING DATE OF STUDY: 07/06/2024 SCANNER: Marcos RADIOPHARMACEUTICAL: 15.9 mCi F-18 Fluorodeoxyglucose (FDG) i.v. [...] obtained. The study was interpreted on the 24/7 Card workstation. The mean liver SUV (reported for quality assurance supervisor purposes) is 3.2. The total scanned area [...] FDG-PET/CT IMAGING DATE OF STUDY: 07/06/2024 SCANNER: DOOMORO RADIOPHARMACEUTICAL: 15.9 mCi F-18 Fluorodeoxyglucose (FDG) i.v. [...] obtained. The study was interpreted on the 24/7 Card workstation. The mean liver SUV (reported for quality assurance supervisor purposes) is 3.2. The total scanned area [...] Knee Right 3 Views (06/14/2024 2:38 PM MEDICAL BILL PROCESSOR) Anatomical Region Laterality Modality Lower Extremities, Knee Right [facility] Imp[facility] 06/14/2024 2:38 PM MEDICAL BILL PROCESSOR IMPRESSION - Expected appearance of right total knee arthroplasty w/ no acute osseous abnl. Small right knee joint effusion. [address] [place] [address] Narrative 06/14/2024 2:38 PM MEDICAL BILL PROCESSOR 06/14/2024 - x-ray right knee - right total knee arthroplasty which appears well seated in near-anatomic alignment. No fracture. No periprosthetic lucency to suggest loosening or infection. Small left knee joint effusion. Soft tissues otherwise unremarkable. Heidy Brenner MD IMG XR PROCEDURES Final R esult * (ABNORMAL) US Head Neck Soft Tissue (06/14/2024 2:37 PM MEDICAL BILL PROCESSOR) Anatomical Region Laterality Modality Head and Neck N/A Ultrasound Impressions 06/14/2024 2:37 PM MEDICAL BILL PROCESSOR IMPRESSION - Enlarged 4.1 x 2.7 x 1.6 cm right jugular chain lymph node which could be reactive, metastatic, or due to lymphoma. Recommend ultrasound-guided core needle biopsy [address] [place] [address] Narrative 06/14/2024 2:37 PM MEDICAL BILL PROCESSOR 06/14/2024 - US soft tissue neck - [...] 0.9 cm w/ central echogenic fatty hilum. us Historical Provider IMG US PROCEDURES Final R esult * SCAN - RADIOLOGY/IMAGING (06/14/2024) Anatomical Region Laterality Modality Other us Juhi Espinoza MD Edited Re sult - Final * Screening Mammogram Bilateral W Vicente (05/15/2024 2:09 PM MEDICAL BILL PROCESSOR) Anatomical Region Laterality Modality Breast Bilateral Mammography 05/15/2024 2:21 PM MEDICAL BILL PROCESSOR Impressions 05/15/2024 2:21 PM MEDICAL BILL PROCESSOR No evidence of malignancy in either breast. FINAL ASSESSMENT: BI-RADS Category 1: Negative. RECOMMENDATION: Recommend return for annual screening mammogram in 12 months. Electronically signed by: Ángel Miramontes II DIlene Narrative 05/15/2024 2:21 PM MEDICAL BILL PROCESSOR EXAMINATION: BILATERAL SCREENING MAMMOGRAM COMPARISON: All prior mammograms dating back to 2014. TECHNIQUE: Full-field 2D and digital breast tomosynthesis (DBT) images were obtained. CAD was utilized. BREAST PARENCHYMAL COMPOSITION: There are scattered areas of fibroglandular density. FINDINGS: There is no suspicious mass, calcification, or distortion in either breast. Benign-appearing microcalcifications bilaterally. us Juhi Espinoza MD IMG MAMMO PROCEDURES [place] Result * (ABNORMAL) Colonoscopy (06/30/2022) Anatomical Region Laterality Modality Other Impressions 06/30/2022 06/30/2022 - colonoscopy - single small sessile polyp descending colon. Multiple medium-sized non-bleeding internal hemorrhoids. Multiple medium diverticula sigmoid colon Dr. Shmuel Mccracken Historical Provider ENDOSCOPY PROCEDURES Edit ed Result - Final * Hepatitis C antibody (04/21/2022 11:36 AM MEDICAL BILL PROCESSOR) Hep C Ab Nonreactive Nonreactive [facility] [...] on 2019. 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 Expl anation ADVANCE DIRECTIVE 08/17/2024 7:21 AM Power of Medical Billing And Coding Instructor-Medical * Full Code (Latest Code Status on File) Date Activated Date Inactivated Comments 08/17/2024 9:24 PM 08/19/2024 6:11 PM Care Teams Retort Setter Relationship Specialty [place] [address] [address] [facility] [address] [place] [address] PCP - General Family Medicine 12/19/19 Shmuel Mccracken MD [address] [facility] [address] [place] [address] Referring Physician Gastroenterology 05/15/24 Magdiel Campbell MD [address] [facility] [address] [place] [address] Medical Oncologist/Airline Reservationist Medical Oncology 07/10/24 Hilary Rousseau, RN Nurse Navigator 07/26/24 Jacqui Elizondo, SEXUAL ASSAULT COUNSELLOR Rn House Supervisor 07/26/24 Elier Quintero MD [address] [place] [address] Consulting Physician Otolaryngology 07/27/24 Damien Valles MD [address] [place] [address] Consulting Physician Radiation Oncology 08/08/24 Shahram Rosas MD [address] [facility] DEPT OTOLARYNGOLOGY, [facility] [address] [place] [address] Referring Physician Otolaryngology 08/08/24
[2024-08-24 07:08] LABS: Basophils Absolute Auto 0.1 K/mm3 (0.0-0.1); Basophils Percent Auto 0.6 % (0.2-1.2); Eosinophils Absolute Auto 0.4 K/mm3 (0-0.3); Eosinophils Percent Auto 3.5 % (0-4.4); Hematocrit 41.1 % (37.0-47.0); Immature Granulocyte Absolute 0.02 K/mm3 (0.00-0.031); Immature Granulocyte Percent A 0.2 % (0-0.5); Lymphocytes Absolute Auto 4.04 K/mm3 (0.9-3.2); Mean Corpuscular HGB Conc 31.6 g/dl (32-36); Mean Corpuscular Hemoglobin 28.4 pg (26-34); Mean Corpuscular Volume 89.9 fl (80-100); Mean Platelet Volume 9.2 fl (7.4-10.4); Monocytes Absolute Auto 0.7 K/mm3 (0.1-0.6); Monocytes Percent Auto 6.6 % (2.6-8.5); Neutrophils Absolute Auto 5.2 K/mm3 (1.3-6.7); Neutrophils Percent Auto 50.1 % (45.5-73.1); Platelet Count Result 483 k/mm3 (150-375); Red Blood Count 4.57 M/mm3 (4.2-5.4); Red Cell Distribution Width 13.9 % (11.5-14.5); White Blood Count 10.4 K/mm3 (4.5-10.0)
[2024-08-24 07:17] LABS: Alanine Aminotransferase 35 U/L (6-35); Albumin Level 4.1 g/dL (3.5-5.1); Alkaline Phosphatase 123 U/L (38-126); Anion Gap 9 mmol/L (4-12); Aspartate Amino Transferase 30 U/L (14-36); Bilirubin,Total 0.5 mg/dL (0.2-1.3); Blood Urea Nitrogen 20 mg/dL (7-17); Calcium 8.9 mg/dL (8.4-10.2); Carbon Dioxide 29 mmol/L (22-30); Chloride 99 mmol/L (98-107); Estimated CRCL calculation 50 ml/min; Estimated Glomerular Filt Rate 57; Glucose 108 mg/dL (65-110); Potassium 3.1 mmol/L (3.4-5.0); Sodium 137 mmol/L (137-145)
[2024-08-24 07:23] LABS: INR 1.1; Prothrombin Time 14.5 Seconds (11.1-14.7)
[2024-08-24 07:24] LABS: Partial Thromboplastin Time 31.4 Seconds (22.3-36.8)
[2024-08-24 07:37] VITALS: BP 177/72; PULSE 106; RESP 30; O2SAT 92
[2024-08-24 08:07] VITALS: BP 157/76; PULSE 92; RESP 18; O2SAT 95
[2024-08-24] MEDS: MORPHINE SULFATE (*CRX) 4 MG/ML INJ 2 MG IV PUSH (08:27)
[2024-08-24] MEDS: PROCHLORPERAZINE EDISYLATE 10 MG/2 ML VIAL IV PUSH (09:08)
[2024-08-24 09:09] VITALS: BP 132/61; PULSE 94; RESP 20; O2SAT 96
== END 2024-08-24 09:16 | disposition short-term general hospital (02) ==
LOC: ANHED 07:01
PROVIDERS: Emergency Provider Emergency Medicine; PCP Family Medicine
DX: J95.830 Postprocedural hemorrhage of a respiratory system organ or structure following a respiratory system procedure (principal); I10 Essential (primary) hypertension; E03.9 Hypothyroidism, unspecified
CPT/HCPCS: 36415; 80053; 85025; 85610; 85730; 96361; 96374; 96375; 99291; J0780; J2270; J2405; J7030